=== PATIENT | female | born 1945 | race Caucasian/White ===

== ENCOUNTER 2020-07-04 17:07 | Observation (INO) | payer MEDICARE, OTHER ==
[~2020-07-04] VITALS: Ht 152.4 cm; Wt 47.2 kg
[~2020-07-04 17:07] MED LIST: AMLO5 PO; AMOX500 PO; ASPI325 PO; ATOR40TA PO; DEXT10ER; DEXT10ER PO; HYDACE5325; LEVO750 PO; LISI20 PO; MODA200 PO; POTCHL20ER PO
[2020-07-04] MEDS ORDERED: CALCIUM CIT 311 EACH PO (21:36)
[2020-07-04] MEDS ORDERED: VITAMIN D325 MC3 PO (21:37)
[2020-07-04] MEDS ORDERED: FAMO20 PO (21:37)
[2020-07-04] MEDS ORDERED: LOSA25 PO (21:37)
[2020-07-04] MEDS ORDERED: METO50 PO (21:37)
[2020-07-04] MEDS ORDERED: GABA100 PO (21:42)
[2020-07-04] MEDS ORDERED: Robaxin750 MG PO (21:43)
[2020-07-05 03:27] LABS: BASOPHILS ABSOLUTE AUTO 0.04 K/mm3 (0.00-0.23); BASOPHILS PERCENT AUTO 1 % (0-2); EOSINOPHILS ABSOLUTE AUTO 0.22 K/mm3 (0.00-0.68); EOSINOPHILS PERCENT AUTO 3 % (0-6); Hematocrit 34.3 % (33.0-51.0); Hemoglobin 10.9 g/dL (11.5-16.0); IMMATURE GRAN ABSOLUTE AUTO 0.01 K/mm3 (0.00-0.10); IMMATURE GRAN PERCENT AUTO 0 % (0-1); LYMPHOCYTES ABSOLUTE AUTO 1.67 K/mm3 (0.84-5.20); LYMPHOCYTES PERCENT AUTO 24 % (21-46); MONOCYTES ABSOLUTE AUTO 0.89 K/mm3 (0.16-1.47); MONOCYTES PERCENT AUTO 13 % (4-13); Mean Corpuscular HGB 27.6 pg (26.0-34.0); Mean Corpuscular HGB Conc 31.8 g/dL (31.5-36.5); Mean Corpuscular Volume 87 fL (80-100); Mean Platelet Volume 9.9 fL (9.1-12.4); NEUTROPHILS PERCENT AUTO 60 % (41-73); Platelet Count 190 K/mm3 (150-400); RDW Coefficient Variation 14.2 % (11.7-14.2); RDW Standard Deviation 45.4 fL (35.1-46.3); Red Blood Cell Count 3.95 M/mm3 (3.80-5.20); White Blood Cell Count 7.03 K/mm3 (4.00-11.30)
[2020-07-05 03:47] LABS: Anion Gap 4 mmol/L (6-16); Blood Urea Nitrogen 17 mg/dL (8-24); Bun/Creatinine Ratio 24.6 (12.0-20.0); CO2, Blood 30 mmol/L (21-32); Calcium, Blood 8.7 mg/dL (8.5-10.1); Chloride, Blood 108 mmol/L (98-108); Creatinine, Blood 0.69 mg/dL (0.40-1.00); Glomerular Filtration Rate >60 (60-); Glucose, Blood 104 mg/dL (70-99); Potassium, Blood 4.1 mmol/L (3.5-5.5); Sodium, Blood 142 mmol/L (136-145)
--- NOTE | 2020-07-05 19:38 | NUR ---
PT ADMITTED TO ROOM 363 FROM ED AT 1635. ABLE TO STAND AND TAKE A FEW STEPS AND TURN TO GET INTO BED WITH 1 PERSON MOD ASSIST. SETTLED IN TO BED AND ORIENTED TO ROOM. ATE SUPPER WITH NO PROBLEM. REPORTED BACK PAIN 08/03. REPORT GIVEN TO ONCOMING SHIFT.
--- NOTE | 2020-07-06 03:37 | NUR ---
SHIFT SUMMARY AT SHIFT COMMENCE WAS C/O PAIN. RECEIVED IV ANALGESIC AND HAS BEEN RESTING QUIETLY WITH NO C/O VOICED SINCE. CALL LIGHT IN REACH. SEE MAR FOR DETAILS
[2020-07-06 05:18] LABS: Hematocrit 33.3 % (33.0-51.0); Hemoglobin 10.6 g/dL (11.5-16.0); Mean Corpuscular HGB 27.4 pg (26.0-34.0); Mean Corpuscular HGB Conc 31.8 g/dL (31.5-36.5); Mean Corpuscular Volume 86 fL (80-100); Mean Platelet Volume 10.3 fL (9.1-12.4); Platelet Count 193 K/mm3 (150-400); RDW Coefficient Variation 14.4 % (11.7-14.2); RDW Standard Deviation 45.7 fL (35.1-46.3); Red Blood Cell Count 3.87 M/mm3 (3.80-5.20); White Blood Cell Count 5.49 K/mm3 (4.00-11.30)
[2020-07-06 05:54] LABS: Anion Gap 7 mmol/L (6-16); Blood Urea Nitrogen 31 mg/dL (8-24); Bun/Creatinine Ratio 30.1 (12.0-20.0); CO2, Blood 27 mmol/L (21-32); Calcium, Blood 8.4 mg/dL (8.5-10.1); Chloride, Blood 108 mmol/L (98-108); Creatinine, Blood 1.03 mg/dL (0.40-1.00); Glomerular Filtration Rate 56 (60-); Glucose, Blood 98 mg/dL (70-99); Potassium, Blood 3.6 mmol/L (3.5-5.5); Sodium, Blood 142 mmol/L (136-145); Thyroid Stimulating Hormone <0.005 uIU/mL (0.360-4.800)
[2020-07-06] MEDS ORDERED: DEXT5ER PO (06:36)
--- NOTE | 2020-07-06 17:59 | NUR ---
SHIFT SUMMARY: NO ACUTE EVENTS. PAIN WELL MANAGED WITH NORCO AND TORADOL. DENIED NAUSEA. WORKED WITH PHYSICAL AND OCCUPATIONAL THERAPY TODAY. U/S OF NECK IS COMPLETED. PLAN IS POSSIBLE D/C TOMORROW.
--- NOTE | 2020-07-07 04:53 | NUR ---
FURNACE ATTENDANT SUMMARY PT A&OX3, ABLE TO MAKE NEEDS KNOWN. PLEASANT AND COOPERATIVE TO CARE. PT MEDICATED FOR LOWER BACK PAIN PER EMAR. NO C/O CP, SOB, OR N&V. PT CALM AND RESTED IN BED T/O SHIFT. NO ACUTE CHANGES NOTED TO PT. BED AT LOWEST POSITION. CALL LIGHT WITHIN REACH. POSSIBLE D/C TODAY.
[2020-07-07] MEDS ORDERED: Neurontin 100100 MG PO (16:33)
[2020-07-07] MEDS ORDERED: HYDR1TAB94 PO (16:34)
[2020-07-07] MEDS ORDERED: LIDO700A20 TOP (16:34)
[2020-07-07] MEDS ORDERED: Methocarbamol500 MG PO (16:35)
--- NOTE | 2020-07-07 18:23 | NUR ---
PATIENT DISCHARGED TO HOME IN CAB PAID BY [employer]. IV SALINE LOCK REMOVED WITHOUT INCIDENT. PATIENT KEPT PUTTING UP ROADBLOCKS TO D/C (NO CLOTHING, NO WAY TO PAY FOR CAB, NO ONE TO HELP HER GET TO HER FRONT DOOR, NO ONE TO HELP HER TURN HER FURNACE ON AT HOME); I REMINDED PT THAT SHE LIVED ALONE PRIOR TO ADMISSION AND WAS ABLE TO DO THINGS WITH LITTLE TO NO ASSISTANCE. KIER PLEATER WAS INSTRUCTED BY [employer] LETTERING MACHINE OPERATOR TO STOP AT PT'S PHARMACY TO INFORMATION MANAGER MEDICATIONS, TO WHICH HE AGREED. PATIENT RECEIVED EDUCATION ON ALL MEDICATIONS, GIVEN HARD COPY RX FOR NORCO, PROVIDED WITH CLOTHING AND A QUAD CANE, AND A SNACK (HALF SANDWICH, CHEESE, ENSURE). OFF UNIT VIA W/C AT 1730.
== END 2020-07-07 17:27 | disposition home health service (06) ==
LOC: ER 17:07 → ERHOLD 17:08 → MEDS 07-05 16:38
PROVIDERS: Internal Medicine; ADMIT Family Medicine
DX: M54.5 Low back pain (principal); S32.10XD Unspecified fracture of sacrum, subsequent encounter for fracture with routine healing; E05.20 Thyrotoxicosis with toxic multinodular goiter without thyrotoxic crisis or storm; I69.351 Hemiplegia and hemiparesis following cerebral infarction affecting right dominant side; G89.29 Other chronic pain; M51.37 Other intervertebral disc degeneration, lumbosacral region; Z66 Do not resuscitate; I10 Essential (primary) hypertension; K21.9 Gastro-esophageal reflux disease without esophagitis; M79.2 Neuralgia and neuritis, unspecified; R32 Unspecified urinary incontinence; R15.9 Full incontinence of feces; X58.XXXD Exposure to other specified factors, subsequent encounter
CPT/HCPCS: 36415; 72100; 76536; 80048; 84436; 84443; 85025; 85027; 96374; 97110; 97116-CQ; 97162; 97166; 97530; 99284; 99284-25; A9270; G0378; J1885

== ENCOUNTER 2020-08-01 21:56 | Inpatient (IN) | payer OTHER, MEDICARE ==
[~2020-08-01] VITALS: Ht 154.9 cm; Wt 40.1 kg
[~2020-08-01 21:56] MED LIST changes: +CALCIUM CIT 311 EACH PO; +DEXT5ER PO; +FAMO20 PO; +GABA100 PO; +HYDR1TAB94 PO; +LIDO700A20 TOP; +LOSA25 PO; +METO50 PO; +Methocarbamol500 MG PO; +Neurontin 100100 MG PO; +Robaxin750 MG PO; +VITAMIN D325 MC3 PO
--- NOTE | 2020-08-02 00:21 | NUR ---
RECIEVED REPORT FROM ED NURSE JAMES AT 1221. CC
[2020-08-02 01:39] LABS: Influenza A, PCR NEGATIVE (NEGATIVE); Influenza B, PCR NEGATIVE (NEGATIVE); Resp Syncytial Virus, PCR NEGATIVE (NEGATIVE); SARS-Cov-2 (COVID-19) PCR, MMC NEGATIVE (NEGATIVE)
--- NOTE | 2020-08-02 02:25 | NUR ---
ARRIVED FROM ED AT 1240 PT ARRIVED FROM ED AT 1240 AOX4. VSS. HYPERTENSIVE AND IN PAIN 03/05. MILD DISTRESS BECAUSE OF PAIN. HYDRALZINE WAS ADMINISTERED VIA IV. PAIN MED WAS ADMINSTERED AT ED PRIOR TO TRANSFER FOR MORPHINE. COVID TEST SENT TO LAB. CAME BACK NEGATIVE. PT REFUSE TO HAVE CATHETER IN. UA UNCOLLECTED AT THIS TIME. NPO AT MIDNIGHT. TELE WAS PUT IN, [place] AT 113. DR. DONALDSON WAS THE ADMITING PHYSICIAN, CONSULTED DR. BURCIAGA PER ER NURSE JAMES. LUNGS ARE CLEAR. PT DENIES CHEST PAIN, SOB, NUMBNESS AND TINGLING. PT ADMITTED FOR R FEMORAL NECK FX DUE TO MECHANICAL FALL IN HER KITCHEN AT HOME. PT STATES SHE LIVES ALONE IN HER HOUSE, HAVE CAREGIVER COME IN DURING THE DAY, HER NAME IS BETTY. VERBAL CONSENT TO SPEAK TO HER REGARDING MEDICAL NEEDS. CALL LIGHT WITHIN REACH.
--- NOTE | 2020-08-02 02:31 | NUR ---
PT SLEEPING COMFORTABLE IN BED.
[2020-08-02 03:43] LABS: Source, Urine Catheter
--- NOTE | 2020-08-02 03:47 | NUR ---
SHIFT SUMMARY AOX4. PT ADMITTED FOR FEMORAL FX ON RIGHT DUE TO MECHANICAL FALL AT HOME. VSS. BP IMPROVED TO 131/60 FROM 176/107 AFTER 10MG HYDRALAZINE VIA IV. PT APPEARS MORE CALM IN BED. STILL C/O PAIN 03/05. PAIN MANAGED WITH FENTANYL 25MCG. NPO. DENIES NAUSEA AND VOMITING. PT REPORTS IN SEVERE PAIN WITH MOVEMENT. NS INFUSING AT 100MLS/HR ON LEFT AC. URINARY CATHETER IN PLACED. UA SAMPLE SENT TO LAB. WILL CONTINUE TO MONITOR. CALL LIGHT WITHIN REACH.
[2020-08-02 03:48] LABS: Bilirubin, Urine Neg (Neg); Blood, Urine Neg (Neg); Glucose Qualitative, Urine Neg (Neg); Ketones, Urine Neg (Neg); Leukocyte Esterase, Urine 2+ (Neg); Nitrite, Urine Pos (Neg); Protein, Urine 1+ (Neg); Specific Gravity, Urine 1.015 (1.003-1.022); Urobilinogen, Urine NORM (Normal)
[2020-08-02 03:54] LABS: Appearance, Urine Clear (Clear); Color, Urine Yellow (P-Yellow)
[2020-08-02 03:55] LABS: Bacteria Many /hpf; Red Blood Cells, Urine 0-2 /hpf (0-2); Squamous Epithelial Cells Few /hpf (Few)
[2020-08-02 04:46] LABS: BASOPHILS ABSOLUTE AUTO 0.02 K/mm3 (0.00-0.23); BASOPHILS PERCENT AUTO 0 % (0-2); EOSINOPHILS PERCENT AUTO 0 % (0-6); Hematocrit 33.4 % (33.0-51.0); Hemoglobin 10.9 g/dL (11.5-16.0); IMMATURE GRAN ABSOLUTE AUTO 0.03 K/mm3 (0.00-0.10); IMMATURE GRAN PERCENT AUTO 0 % (0-1); LYMPHOCYTES PERCENT AUTO 6 % (21-46); MONOCYTES ABSOLUTE AUTO 0.63 K/mm3 (0.16-1.47); MONOCYTES PERCENT AUTO 6 % (4-13); Mean Corpuscular HGB 27.2 pg (26.0-34.0); Mean Corpuscular HGB Conc 32.6 g/dL (31.5-36.5); Mean Corpuscular Volume 83 fL (80-100); NEUTROPHILS ABSOLUTE AUTO 9.78 K/mm3 (1.96-9.15); NEUTROPHILS PERCENT AUTO 88 % (41-73); Platelet Count 186 K/mm3 (150-400); RDW Coefficient Variation 13.2 % (11.7-14.2); RDW Standard Deviation 40.1 fL (35.1-46.3); Red Blood Cell Count 4.01 M/mm3 (3.80-5.20); White Blood Cell Count 11.16 K/mm3 (4.00-11.30)
[2020-08-02 05:04] LABS: Alanine Aminotransfer (ALT/SGP 18 U/L (12-78); Albumin, Blood 3.2 g/dL (3.4-5.0); Albumin/Globulin Ratio 0.8 (0.8-1.8); Alk Phos 140 U/L (50-136); Anion Gap 7 mmol/L (6-16); Aspartate Aminotrans (AST/SGOT 18 U/L (12-37); Bilirubin, Total 0.8 mg/dL (0.1-1.0); Blood Urea Nitrogen 26 mg/dL (8-24); Bun/Creatinine Ratio 34.8 (12.0-20.0); CO2, Blood 25 mmol/L (21-32); Calcium, Blood 9.4 mg/dL (8.5-10.1); Chloride, Blood 109 mmol/L (98-108); Creatinine, Blood 0.75 mg/dL (0.40-1.00); Globulin, Blood 3.9 g/dL (2.2-4.0); Glomerular Filtration Rate >60 (60-); Glucose, Blood 124 mg/dL (70-99); Potassium, Blood 4.3 mmol/L (3.5-5.5); Sodium, Blood 141 mmol/L (136-145); Total Protein, Blood 7.1 g/dL (6.4-8.2)
--- NOTE | 2020-08-02 09:00 | NUR ---
HEART RATE/RHYTHM THIS RN WAS NOTIFIED BY [employer] THAT PT'S RHYTHM LOOKS TO BE AFLUTTER WITH A RATE IN THE 120'S. THIS RN DISCUSSED THIS WITH DR. DICKERSON. NO NEW ORDERS AT THIS TIME. CALL LIGHT IN REACH.
[2020-08-02 16:30] LABS: Free Thyroxine 2.89 ng/dL (0.70-1.60); Thyroid Stimulating Hormone <0.005 uIU/mL (0.360-4.800); Triiodothyronine, Free 6.03 pg/mL (2.18-3.98)
--- NOTE | 2020-08-02 16:54 | NUR ---
echocardiogram complete
--- NOTE | 2020-08-02 17:31 | NUR ---
SHIFT SUMMARY PT HAS BEEN SLEEPING A LOT OF THE SHIFT. DR. SOTELO INTO SEE PT THIS AFTERNOON FOR CONSULT AND NEW ORDERS WRITTEN. PLANS FOR PT TO HAVE SURGERY TOMORROW. MEDICATED FOR PAIN PER EMAR. IVF INFUSING WITHOUT DIFFICULTY. PT HAS HAD NO ACUTE CHANGES. CALL LIGHT IN REACH. WILL CONTINUE TO MONITOR.
[2020-08-03 06:07] LABS: BASOPHILS ABSOLUTE AUTO 0.03 K/mm3 (0.00-0.23); BASOPHILS PERCENT AUTO 0 % (0-2); EOSINOPHILS ABSOLUTE AUTO 0.19 K/mm3 (0.00-0.68); EOSINOPHILS PERCENT AUTO 2 % (0-6); Hematocrit 33.6 % (33.0-51.0); Hemoglobin 10.9 g/dL (11.5-16.0); IMMATURE GRAN ABSOLUTE AUTO 0.06 K/mm3 (0.00-0.10); IMMATURE GRAN PERCENT AUTO 1 % (0-1); LYMPHOCYTES ABSOLUTE AUTO 0.87 K/mm3 (0.84-5.20); LYMPHOCYTES PERCENT AUTO 7 % (21-46); MONOCYTES ABSOLUTE AUTO 0.68 K/mm3 (0.16-1.47); MONOCYTES PERCENT AUTO 6 % (4-13); Mean Corpuscular HGB 27.5 pg (26.0-34.0); Mean Corpuscular HGB Conc 32.4 g/dL (31.5-36.5); Mean Corpuscular Volume 85 fL (80-100); NEUTROPHILS ABSOLUTE AUTO 10.21 K/mm3 (1.96-9.15); NEUTROPHILS PERCENT AUTO 85 % (41-73); Platelet Count 151 K/mm3 (150-400); RDW Coefficient Variation 13.4 % (11.7-14.2); RDW Standard Deviation 42.1 fL (35.1-46.3); Red Blood Cell Count 3.97 M/mm3 (3.80-5.20); White Blood Cell Count 12.04 K/mm3 (4.00-11.30)
[2020-08-03 06:31] LABS: Alanine Aminotransfer (ALT/SGP 16 U/L (12-78); Albumin, Blood 2.7 g/dL (3.4-5.0); Albumin/Globulin Ratio 0.7 (0.8-1.8); Alk Phos 129 U/L (50-136); Anion Gap 9 mmol/L (6-16); Aspartate Aminotrans (AST/SGOT 21 U/L (12-37); Bilirubin, Total 1.1 mg/dL (0.1-1.0); Blood Urea Nitrogen 21 mg/dL (8-24); Bun/Creatinine Ratio 27.7 (12.0-20.0); CO2, Blood 21 mmol/L (21-32); Chloride, Blood 113 mmol/L (98-108); Creatinine, Blood 0.76 mg/dL (0.40-1.00); Globulin, Blood 4.1 g/dL (2.2-4.0); Glomerular Filtration Rate >60 (60-); Glucose, Blood 83 mg/dL (70-99); Potassium, Blood 3.9 mmol/L (3.5-5.5); Sodium, Blood 143 mmol/L (136-145); Total Protein, Blood 6.8 g/dL (6.4-8.2)
--- NOTE | 2020-08-03 11:20 | NUR ---
PT TO DAY SURGERY VIA HOSPITAL BED
--- NOTE | 2020-08-03 17:24 | NUR ---
ASSUMED CARE OF PT POST OP, ARRIVED FROM PACU VIA GURNEY, DROWSY BUT AWAKENS EASILY, DENIES ANY PAIN OR NAUSEA, VSS, DSG C/D/I, REPORT GIVEN TO KEVIN RAMIREZ.
--- NOTE | 2020-08-03 18:52 | NUR ---
SHIFT SUMMARY PT S/P FOR R HIP FX. RECEIVED PATIENT FROM ALIDA OLIVIA FROM AT 1600. PT HAS BEEN RESTING FOR THE MAJORITY OF THE TIME I HAD HER. UTI PRESENT. MAHONEY IN PLACE PATENT AND DRAINING. VSS.
--- NOTE | 2020-08-04 02:34 | NUR ---
SHIFT SUMMARY POD1 R FEMUR FX REPAIR, A/O X2/3 (REORIENTED TO PLACE AND SITUATION), TOLERATING PO THOUGH SHE DEVELOPED A MILD COUGH WHEN DRINKING FLUIDS BUT IS DOING WELL NOW, REPORTS PAIN TOLERABLE W/O PAIN MEDICATIONS DURING THIS SHIFT, MAHONEY IN PLACE FROM MAJOR SURGERY AND WILL DC PER ORDER, NO WEIGHT BEARING STATUS ORDERED SO PT IS ON BEDREST TILL FURTHER INSTRUCTIONS. NO ACUTE EVENTS THIS SHIFT, PT GIVEN SUCTION INCASE SHE COUGHS UP ANY DISCHARGE. CALL LIGHT IN REACH, WILL CONTINUE TO MONITOR AND REPORT TO ONCOMING DAY RN.
--- NOTE | 2020-08-04 09:28 | NUR ---
08/04/20 0928 Jess Cotto VERIFICATIONS: EDIT CHART.
[2020-08-04 10:06] LABS: Hematocrit 25.3 % (33.0-51.0); Hemoglobin 8.6 g/dL (11.5-16.0); Mean Corpuscular HGB 28.5 pg (26.0-34.0); Mean Corpuscular Volume 84 fL (80-100); Mean Platelet Volume 10.4 fL (9.1-12.4); Platelet Count 147 K/mm3 (150-400); RDW Coefficient Variation 13.6 % (11.7-14.2); RDW Standard Deviation 41.9 fL (35.1-46.3); Red Blood Cell Count 3.02 M/mm3 (3.80-5.20); White Blood Cell Count 10.42 K/mm3 (4.00-11.30)
[2020-08-04 10:30] LABS: Anion Gap 7 mmol/L (6-16); Blood Urea Nitrogen 49 mg/dL (8-24); CO2, Blood 24 mmol/L (21-32); Calcium, Blood 8.6 mg/dL (8.5-10.1); Chloride, Blood 110 mmol/L (98-108); Creatinine, Blood 0.88 mg/dL (0.40-1.00); Glomerular Filtration Rate >60 (60-); Glucose, Blood 192 mg/dL (70-99); Potassium, Blood 4.3 mmol/L (3.5-5.5); Sodium, Blood 141 mmol/L (136-145)
--- NOTE | 2020-08-04 15:04 | NUR ---
IS GIVEN WITH INSTRUCTIONS, DEMONSTRATED PROPER USE.
--- NOTE | 2020-08-04 17:03 | NUR ---
SUMMARY REPORTS PAIN HAS BEEN TOLERABLE, PT HAS ONLY TAKEN TYLENOL FOR PAIN, DENIES ANY NEED FOR NARCOTICS, AQUACEL DSG C/D/I, OOB W/ PT/OT TOLERATED FAIRLY WELL, W/ 2 PERSON MAX ASSIST, TOLERATING DIET WELL, NO ACUTE CHANGES THIS SHIFT.
--- NOTE | 2020-08-05 02:55 | NUR ---
BLOOD PRESSURE PT APPEARS TO BE ASYMPTOMATIC FOR HYPOTENSION, PT HAS HAD LOW PO INTAKE TODAY, FLUIDS RESTARTED, WILL CONTINUE TO MONITOR AND RECHECK BP.
--- NOTE | 2020-08-05 04:15 | NUR ---
SHIFT SUMMARY POD2 INTRAMEDULLARY NAILING, ALERT W/ INTERMITTENT CONFUSION, VSS OTHER THAN SLIGHTLY LOW BP, FLUIDS RESTARTED AND ENCOURAGED PO FLUID INTAKE, PT VOICED DISLIKE OF CURRENTLY MEDICAL CARE, STATES SHE DOESN'T WANT ANYTHING THAT SHE DOESN'T NORMALLY TAKE. 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 PT IRRITABLE BUT COOPERATIVE W/ NURSING CARE. CALL LIGHT IN REACH, WILL CONTINUE TO MONITOR AND REPORT TO ONCOMING DAY RN.
--- NOTE | 2020-08-05 09:40 | NUR ---
pt oob with ot to recliner pt reported being dizzy upon standing dr solorio by to see pt earlier req a muscle relaxer and pain oral pain med
--- NOTE | 2020-08-05 11:11 | NUR ---
PT BACK IN BED
--- NOTE | 2020-08-05 15:53 | NUR ---
ASSUMED CARE OF PATIENT. PT RESTING IN BED AND TALKING ON TELEPHONE. PT STATES HAS NO NEEDS AT THIS TIME
--- NOTE | 2020-08-05 17:37 | NUR ---
SUMMARY PT REPORTS ADEQUATE PAIN CONTROL AT THIS TIME. PT TELLS ME SHE PLANS TO DISCHARGE TO SNF PRIOR TO RETURNING HOME, CARE MANAGEMENT FACILITATING DISCHARGE PLAN. PT EATINNG DINNER WITH CALL LIGHT IN REACH
--- NOTE | 2020-08-06 05:23 | NUR ---
SHIFT SUMMARY PT HAS BEEN ALERT, ORIENTED X3; FORGETFUL/CONFUSED AT TIMES. BED ALARM ON. PAIN MANAGED WITH PO PAIN MED PER ORDERS. PT TAKING PILLS WITH WATER. MAHONEY IN PLACE, PATENT, STAT LOCK ON. PT HAD BM THIS SHIFT. SHE IS INCONTINENT AND HAS ATTENS ON. REPOSITIONING SELF IN BED AND ASSISTED PRN. PT DID AWAKEN WITH ANXIETY AND PAIN DURING THE NIGHT AND WAS MEDICATED WITH FLEXERIL AND PAIN MEDICATION WITH GOOD EFFECT. PT RESTING AT THIS TIME, CALL LIGHT IN REACH.
--- NOTE | 2020-08-06 08:29 | NUR ---
DR DICKERSON HERE RECENTLY TO SEE PT. REPORTS TO D/C DENZEL TODAY.
--- NOTE | 2020-08-06 11:20 | NUR ---
FEMALE THERAPY IN ROOM. DENZEL ZARATE'Rosalia PER DR DICKERSON. PT TOLERATED WELL.
--- NOTE | 2020-08-06 12:02 | NUR ---
PT UP TO CHAIR WITH MULT ASSIST INCLUDING THERAPY. TAB ALARM IN PLACE. PT PAINFULL AND APPEARS ANXIOUS AT THIS TIME. PT HAD BM, CLEANED UP BY FEMALE OUT OF SCHOOL HOURS CARE WORKER. MEPILEX IN PLACE.
--- NOTE | 2020-08-06 12:11 | NUR ---
PT MED PRN FOR PAIN.
--- NOTE | 2020-08-06 13:08 | NUR ---
PT UP IN CHAIR WATCHING TV. APPEARS TO BE MUCH MORE RELAXED AT THIS TIME.
--- NOTE | 2020-08-06 14:24 | NUR ---
PT BACK TO BED WITH MULT ASSIST PER PT REQ. PT ASSISTED WITH ADL'S PRN. PT GIVEN SIPPY CUP PT REPORTED OTHER CUP TO HEAVY. PT REPORTS THAT WILL WORK BETTER, ABLE TO SALES SERVICE EXECUTIVE AND DOWN WELL. PT BED BEEN ZERO'D AND BED ALARM IN PLACE. PT HOB ELEVATED. BLE TEDS IN PLACE. PT BLE ELEVATED ON PILLOW. PT CONTINUE TO REFUSE PAS, BEEN EDUCATED ON REASON FOR USE.
--- NOTE | 2020-08-06 16:55 | NUR ---
SHIFT SUMMARY PT EATING AND DRINKING. PT BEEN UP TO CHAIR WITH THERAPY ASSIST. PT BACK TO BED EARLIER TODAY PER PT REQ. PT MAHONEY OUT EARLIER TODAY. PT HAD BM TODAY, MEPILEX WAS PLACED TO BOTTOM BY FEMALE VOICE OVER ARTIST. PT USES CALL LIGHT AT TIMES. PT BED ALARM IN PLACE AT THIS TIME. PT HAS TEDS IN PLACE BUT REFUSES SCD'S. PT PLACED ON 2L02NC THIS AFTERNOON WHEN SLEEPING SHE WAS BELOW 90 ON RA AT THAT TIME, UP TO 94% ON 2L02NC. PT BEEN ASSISTED WITH ADL'S PRN. PT BEEN REPOSITIONED AT TIMES, OTHER TIMES PT REFUSED TO BE REPOSITIONED. PT HAS HAD BLE ELEVATED ON PILLOW TO FLOAT HEELS, REFUSES HEEL PROTECTORS AND HEEL PROTECTIVE DRESSINGS. PT SPEECH CLEAR. PT RIGHT ARM BEEN ELEVATED/SUPPORTED BY PILLOW AT TIMES, OTHER TIMES PT STATES SHE DOES NOT WANT IT.
--- NOTE | 2020-08-07 04:22 | NUR ---
SHIFT SUMMARY PT HAS BEEN ALERT, ORIENTED X3-4; FORGETFUL AT TIMES. BED ALARM ON. PT HAS BEEN DECLINING MOST REPOSITIONING OVERNIGHT. ATTENS IN PLACE AND CHANGED PRN. PT HAS BEEN INCONTINENT OVERNIGHT. TAKING ULTRAM AND FLEXERIL PRN FOR PAIN. PT REPORTS SHE IS COMFORTABLE AT THIS TIME. USING 2L O2 NC OVERNIGHT, HOB ELEVATED. PT RESTING IN BED AT THIS TIME, CALL LIGHT IN REACH.
[2020-08-07 05:59] LABS: BASOPHILS ABSOLUTE AUTO 0.02 K/mm3 (0.00-0.23); BASOPHILS PERCENT AUTO 0 % (0-2); EOSINOPHILS ABSOLUTE AUTO 0.49 K/mm3 (0.00-0.68); EOSINOPHILS PERCENT AUTO 4 % (0-6); Hematocrit 22.9 % (33.0-51.0); Hemoglobin 7.4 g/dL (11.5-16.0); IMMATURE GRAN ABSOLUTE AUTO 0.05 K/mm3 (0.00-0.10); IMMATURE GRAN PERCENT AUTO 0 % (0-1); LYMPHOCYTES ABSOLUTE AUTO 1.51 K/mm3 (0.84-5.20); LYMPHOCYTES PERCENT AUTO 12 % (21-46); MONOCYTES ABSOLUTE AUTO 0.98 K/mm3 (0.16-1.47); MONOCYTES PERCENT AUTO 8 % (4-13); Mean Corpuscular HGB 27.9 pg (26.0-34.0); Mean Corpuscular HGB Conc 32.3 g/dL (31.5-36.5); Mean Corpuscular Volume 86 fL (80-100); Mean Platelet Volume 10.3 fL (9.1-12.4); NEUTROPHILS PERCENT AUTO 76 % (41-73); Platelet Count 192 K/mm3 (150-400); RDW Coefficient Variation 14.1 % (11.7-14.2); RDW Standard Deviation 43.9 fL (35.1-46.3); Red Blood Cell Count 2.65 M/mm3 (3.80-5.20); White Blood Cell Count 12.85 K/mm3 (4.00-11.30)
[2020-08-07 06:23] LABS: Alanine Aminotransfer (ALT/SGP 16 U/L (12-78); Albumin/Globulin Ratio 0.5 (0.8-1.8); Alk Phos 103 U/L (50-136); Anion Gap 2 mmol/L (6-16); Aspartate Aminotrans (AST/SGOT 12 U/L (12-37); Bilirubin, Total 0.4 mg/dL (0.1-1.0); Blood Urea Nitrogen 21 mg/dL (8-24); CO2, Blood 30 mmol/L (21-32); Calcium, Blood 8.7 mg/dL (8.5-10.1); Chloride, Blood 107 mmol/L (98-108); Creatinine, Blood 0.66 mg/dL (0.40-1.00); Globulin, Blood 3.8 g/dL (2.2-4.0); Glomerular Filtration Rate >60 (60-); Glucose, Blood 97 mg/dL (70-99); Potassium, Blood 4.5 mmol/L (3.5-5.5); Sodium, Blood 139 mmol/L (136-145); Total Protein, Blood 5.8 g/dL (6.4-8.2)
--- NOTE | 2020-08-07 09:15 | NUR ---
DISCUSSED PT'S STATUS AND ABX ORDER WITH DR FRAIRE, REPORTS TO GIVE ABX IS ORDERED THIS AM.
--- NOTE | 2020-08-07 17:20 | NUR ---
SHIFT SUMMARY PT EATING AND DRINKING, VOIDING. PT BEEN ASSISTED WITH ADL'S PRN. PT BEEN MED ORDERED AND PRN. PT BEEN RESTING QUIETLY OFF AND ON. PT BED ALARM IN PLACE. PT BEEN EATING WITH HOB ELEVATED. DR FRAIRE BEEN TO SEE PT TODAY.
--- NOTE | 2020-08-08 03:34 | NUR ---
SHIFT SUMMARY PT HAS BEEN A/O X3, FORGETFUL AT TIMES. PAIN MANAGED WITH ULTRAM AND FLEXERIL PER ORDERS. ATTENS IN PLACE AND CHANGED PRN. PT REPOSITIONS SELF SOMEWHAT IN BED AND HAS BEEN ASSISTED Q2/PRN. PT HAS HAD SOME DIFFICULTY SWALLOWING, COUGHING AFTER DRINKING FLUIDS. WILL DISCUSS WITH DAY SHIFT. TAKING MEDS WITH PUDDING. PT USING 1-2L O2 NC OVERNIGHT TO MAINTAIN O2 ABOVE 92%. RESTING AT THIS TIME, CALL LIGHT IN REACH.
[2020-08-08 05:19] LABS: Hematocrit 22.8 % (33.0-51.0); Hemoglobin 7.4 g/dL (11.5-16.0); Mean Corpuscular HGB 27.7 pg (26.0-34.0); Mean Corpuscular HGB Conc 32.5 g/dL (31.5-36.5); Mean Corpuscular Volume 85 fL (80-100); Mean Platelet Volume 9.8 fL (9.1-12.4); Platelet Count 265 K/mm3 (150-400); RDW Coefficient Variation 13.5 % (11.7-14.2); Red Blood Cell Count 2.67 M/mm3 (3.80-5.20); White Blood Cell Count 11.49 K/mm3 (4.00-11.30)
[2020-08-08 05:41] LABS: Albumin, Blood 1.9 g/dL (3.4-5.0); Anion Gap 4 mmol/L (6-16); Blood Urea Nitrogen 19 mg/dL (8-24); CO2, Blood 29 mmol/L (21-32); Calcium, Blood 8.8 mg/dL (8.5-10.1); Chloride, Blood 106 mmol/L (98-108); Creatinine, Blood 0.63 mg/dL (0.40-1.00); Glomerular Filtration Rate >60 (60-); Glucose, Blood 96 mg/dL (70-99); Phosphorus, Blood 3.9 mg/dL (2.5-4.9); Potassium, Blood 4.5 mmol/L (3.5-5.5); Sodium, Blood 139 mmol/L (136-145)
--- NOTE | 2020-08-08 18:41 | NUR ---
SUMMARY: PT IS POD10 R FEMOR ORIF. NO ACUTE CHANGE TODAY. VSS, A/O, FORGETFUL AT TIMES, BED ALARM ON. SURGICAL SITE WNL, PT WORKED WITH PT/OT, SEE NOTES. SERVERAL INCONTINENT VOIDS, CHANGED PRN, PT ROLLS WELL. PLAN IS SNF PLACEMENT, AWAITING REHAB BED. WILL REPORT TO LATANYA BROWN
--- NOTE | 2020-08-09 06:30 | NUR ---
SHIFT SUMMARY POD6 R ORIF, A/O BUT FORGETFUL, VSS, TOLERATING PO W/ ENCOURAGEMENT TO GO SLOW W/ SMALL BITES/SIPS, TAKES PILLS WELL, MINIMAL REPORTS OF PAIN WHICH IS WELL CONTROLLED PER EMAR, MULTIPLE INCONINENT VOIDS W/ NO BM THIS SHIFT, DOES WELL W/ REPOSITIONING AND NO C/O PAIN WHEN DOING SO. NO ACUTE EVENTS THIS SHIFT. CALL LIGHT IN REACH, WILL CONTINUE TO MONITOR AND REPORT TO ONCOMING DAY RN.
[2020-08-09 08:59] LABS: Hematocrit 25.6 % (33.0-51.0); Hemoglobin 8.4 g/dL (11.5-16.0)
--- NOTE | 2020-08-09 19:09 | NUR ---
SUMMARY: PT IS POD6 ORIF OF R FEMUR. NO ACUTE CHANGE TODAY. VSS, A/O, FORGETFUL AT TIMES. BED ALARM ON. PT TURNED Q2 PRN, HAD SEVERAL INCONT. VOIDS. SURGICAL SITE WNL. ULTRAM AND FLEXERIL SEEM TO MANAGE PAIN WELL. CONTINUING TO AWAIT PLACEMENT AT SNF, SEE REAMING MACHINE OPERATOR FOR PLASTIC NOTES. REPORT GIVEN TO LATANYA ROPER RN.
--- NOTE | 2020-08-10 03:02 | NUR ---
SHIFT SUMMARY POD7 ORIF. NO ACUTE CHANGES T/O SHIFT. PT SLEPT ALL NIGHT. PAIN IS MODERATE 3-5. PAIN MANAGED WITH REPOSITIONING, ULTRAM AND TYLENOL. MEDS ARE TAKEN WITH APPLESAUCE/PUDDING TO HELP IN SWALLOWING. SHE ALERT AND ORIENTED, INTERMINETLY FORGETFUL. BED ALARM ON. PT DENIES CP/SOB/N/V. SHE IS INCONTINENT, VOIDS ADEQUATELY. WILL CONT TO AWAIT FOR PLACEMENT. WILL PROVIDE REPORT TO MORNING NURSE.
[2020-08-10 05:02] LABS: Percent Saturation 16.5 % (15.0-50.0)
--- NOTE | 2020-08-10 08:06 | NUR ---
SORE THROAT Patient c/o sore throat. Received T.O. from Dr. Clifton for Cepachol Q2H PRN for sore throat. EMAR updated.
--- NOTE | 2020-08-10 18:25 | NUR ---
Shift Summary A/Ox4, forgetful at times. Worked with PT/OT this shift, tolerated both well. 2P max stand pivot transfer with gait belt. Up in chair for lunch and back to bed sometime after noon. C/O sorethroat this morning, Cepachol ordered. Ice and cepachol seems to minimize soreness. Medicated for pain to R hip x 2 with good relief, pain exacerbated with movement per patient statement. Refused stool softner and senna, patient did have at least 2 bowel movements today. Both were soft. Mepilex to coccyx changed. Updated caregiver Adriana over the phone and in person. VSS, afebrile. Bed in lowest position, bed alarm on, call light near by.
--- NOTE | 2020-08-11 03:42 | NUR ---
SHIFT SUMMARY NO ACUTE CHANGES T/O THE SHIFT. SHE SLEPT WELL OVERNIGHT. PT REPORTED MODERATE PAIN ON HER RIGHT SIDE, REPOSITIONED AND ULTRAM FOR PAIN MANAGEMENT. NO DIFFICULTY IN SWALLOWING PILLS THIS MORNING. PT HAS NOT BEEN COMPLAINING OF S/T. PT ALSO REFUSED COLACE AND SENOKOT BUT SHE HAD BM FROM THE DAY SHIFT (YESTERDAY). VSS. MEPLEX ON COCCYX. VSS. AFEBRILE. CALL LIGHT WITHIN REACH. WILL PROVIDE REPORT FOR DAY NURSE.
--- NOTE | 2020-08-11 18:11 | NUR ---
SHIFT SUMMARY PT EATING AND DRINKING, VOIDING. PT BEEN ASSISTED WITH ADL'S PRN. PT FAMILY/FRIEND IN TO SEE PT. PT BEEN MED PRN FOR PAIN. PT WORKED WITH THERAPY TODAY, WAS UP IN CHAIR. PT BEEN MED PRN FOR PAIN. PT ALARM IN PLACE. CALL LIGHT IN REACH, USING APPR.
[2020-08-12 04:40] LABS: Hematocrit 25.3 % (33.0-51.0); Hemoglobin 8.1 g/dL (11.5-16.0)
--- NOTE | 2020-08-12 05:23 | NUR ---
SHIFT SUMMARY: PT POD#8 FOR A GAMMA NAILING TO RT HIP. AQUACEL DRESSING C/D/I. PT APPEARED TO BE PARANOID IN BEGINNING OF SHIFT AND REFUSING ALL MEDS. OTHERWISE, PT HAS BEEN CALM AND COOPERATIVE WITH CARE. INCONTINENT OF ATTENDS. 2 MODERATE ASSIST FOR REPOSITIONING. AWAITING POSSIBLE SNF PLACEMENT.
--- NOTE | 2020-08-12 10:24 | NUR ---
PT RECENTLY UP TO CHAIR AFTER WORKING WITH THERAPY. THERAPY REPORTED PLACING TAB ALARM.
--- NOTE | 2020-08-12 11:15 | NUR ---
DISCUSSED PT'S STATUS WITH DR JEAN BAPTISTE SHE REPORTS SEEING PT THIS AM.
--- NOTE | 2020-08-12 15:45 | NUR ---
SHIFT SUMMARY PT EATING AND DRINKING, VOIDING. ATTENDS CHANGED BY FEMALE CRAFT WORKER. PT BEEN UP TO CHAIR TODAY. PT NOW IN BED WITH BED ALARM IN PLACE. PT BEEN PLEASANT AND COOPERATIVE. PT USING CALL LIGHT APPR. PT BEEN REPOSITIONED PRN. PT BEEN MED PRN FOR PAIN. PT BEEN RESTING QUIETLY TAKING NAPS, WATCHING TV, OR READING HER BOOK WHEN NOT DISTURBED.
--- NOTE | 2020-08-12 16:16 | NUR ---
OTHER RN S.S. GIVEN REPORT AND IS ASSUMING CARE OF PT.
--- NOTE | 2020-08-12 16:19 | NUR ---
ASSUMED CARE OF PATIENT. PT IN BED READING A PAPERBACK BOOK. PT DENIES ANY NEEDS AT THIS TIME. CALL LIGHT IN REACH
--- NOTE | 2020-08-12 17:35 | NUR ---
PT EATING DINNER. PT REPORTS RIGHT LEG PAIN IS 3/10 WHICH IS ACCEPTABLE LEVEL FOR HER. PT DENIES ANY NEEDS AT THIS TIME, CALL LIGHT IN REACH
--- NOTE | 2020-08-13 05:40 | NUR ---
SHIFT SUMMARY: PT MORE PAINFUL IN BEGINNING OF SHIFT. MEDICATED WITH ULTRAM, TYLENOL AND FLEXERIL PER EMAR. PT ALSO GIVEN AN ICE PACK FOR COMFORT. PT NOT PARANOID THIS SHIFT AND HAS BEEN COOPERATIVE WITH CARE. CONTINUES TO REFUSE STOOL SOFTENERS. VOIDING IN ATTENDS AND USING CALL LIGHT FOR ASSISTANCE WITH CHANGING ATTENDS. PT TALKATIVE WITH STAFF. APPEARS TO BE RESTING THIS MORNING. AWAITING PLACEMENT.
--- NOTE | 2020-08-13 19:28 | NUR ---
SHIFT SUMMARY PT IS POD#9 FROM R HIP NAILING WITH DR. BURCIAGA. PT IS AWAITING PLACEMENT, RACE STARTER INVOLVED. PAIN MANAGED WITH TYLENOL, TORADOL AND FLEXERIL. VSS. REPORT GIVEN TO LATANYA BROWN.
--- NOTE | 2020-08-14 03:14 | NUR ---
SHIFT SUMMARY POD 10 R HIP FX REPAIR, A/O X4 BUT FORGETFUL, REORIENTS EASILY, PLEASANT AND COOPERATIVE W/ ALL NURSING CARE, VSS, TOLERATING PO, MAX ASSIST W/ AMBULATION DUE TO R SIDE DEFICITS FROM PRIOR CVA, VOIDING INCONTINENTLY, PAIN MANAGED PER EMAR, NO ACUTE EVENTS THIS SHIFT. CALL LIGHT IN REACH, WILL CONTINUE TO MONITOR AND REPORT TO ONCOMING DAY RN.
--- NOTE | 2020-08-14 10:00 | NUR ---
DR. JEAN BAPTISTE NOTIFIED THAT PT HAS BEEN REFUSING HER THYROID MEDICATION. DR. JEAN BAPTISTE REPORTED SHE WOULD CHECK LABS TO DETERMINE IF THYROID MEDICATION WAS NEEDED.
--- NOTE | 2020-08-14 17:53 | NUR ---
SHIFT SUMMARY PT IS POD#10 FROM R HIP REPAIR. PT WAS UP TO THE CHAIR X1 FOR LUNCH. SHE SAT UP FOR APPROXIMATELY AN HOUR AND BECAME TIRED. PT IS A 2 PERSON ASSIST FOR TRANSFERS. PT IS AWAITING PLACEMENT AT THIS TIME. VSS. WILL CONTINUE TO MONITOR.
[2020-08-14 18:08] LABS: Free Thyroxine 2.22 ng/dL (0.70-1.60)
[2020-08-14 18:10] LABS: Triiodothyronine, Free 5.67 pg/mL (2.18-3.98)
--- NOTE | 2020-08-15 06:32 | NUR ---
SHIFT SUMMARY POD 11 R HIP FX REPAIR, A/O BUT FORGETFUL AT TIMES, VSS, TOLERATING PO, PAIN WELL CONTROLLED PER EMAR, VOIDING INCONTINENTLY, SMALL BM THIS SHIFT, NO ACUTE EVENTS THIS SHIFT. CALL LIGHT IN REACH, WILL CONTINUE TO MONITOR AND REPORT TO ONCOMING DAY RN.
--- NOTE | 2020-08-15 07:42 | NUR ---
PT RECENTLY COMPLAINED OF HER LEFT EAR BOTHERING HER. NOTHING SEEN INSIDE HER EAR THAT I CAN SEE, NOTHING NOTED TO BE DRAINING. PT GIVEN WARM BLANKET TO SEE IF THAT WOULD PROVIDE COMFORT. DR JEAN BAPTISTE NOTIFIED.
--- NOTE | 2020-08-15 12:56 | NUR ---
PT RECTUM DID NOT APPEAR TO BE PROLAPSED AT THIS TIME. PT HAD BM AND WAS CLEANED UP WITH ASSIST, NEW MEPILEX TO BOTTOM. PT HAD MEPILEX IN PLACE ALREADY. PT ASSISTED WITH ADL'S PRN. PT ENC OOB TO CHAIR, PT DECLINED. CALL LIGHT IN REACH. BED ALARM IN PLACE.
--- NOTE | 2020-08-15 17:03 | NUR ---
SHIFT SUMMARY PT EATING AND DRINKING, VOIDING, HAVING BM. PT RECTUM PROLAPSE NO LONGER PROTRUDING, DOES NOT APPEAR TO BE PROLAPSED ANYLONGER. PT BEEN REPOSITIONED MULT TIMES. PT HAS HAD MEPILEX REPLACED MULT TIMES WHEN IT BECAME DIRTY/SOILED. PT WORKED WITH THERAPY TODAY. PT REPORTS DOING EXCERCISES IN BED. PT BEEN ASSISTED WITH ADL'S PRN. CALL LIGHT IN REACH, USING APPR. BED ALARM IN PLACE.
--- NOTE | 2020-08-16 04:37 | NUR ---
CHIEF DEPUTY CLERK/BAILIFF SUMMARY A/O 2-3, REFUSES REPOSITIONING AT TIMES. MEDICATED FOR PAIN X1, DENIES SOB. INCONT, ATTENDS IN PLACE. VSS, NO ACUTE CHANGES AT THIS TIME. CURRENTLY AWAITING PLACEMENT FOR SAFE D/C. BED IN LOWEST POSITION WITH CALL LIGHT IN REACH. WILL CONTINUE TO MONITOR AND REPORT TO ONCOMING RN.
[2020-08-16 05:18] LABS: BASOPHILS ABSOLUTE AUTO 0.03 K/mm3 (0.00-0.23); BASOPHILS PERCENT AUTO 0 % (0-2); EOSINOPHILS ABSOLUTE AUTO 0.12 K/mm3 (0.00-0.68); EOSINOPHILS PERCENT AUTO 1 % (0-6); Hemoglobin 8.7 g/dL (11.5-16.0); IMMATURE GRAN ABSOLUTE AUTO 0.02 K/mm3 (0.00-0.10); IMMATURE GRAN PERCENT AUTO 0 % (0-1); LYMPHOCYTES ABSOLUTE AUTO 1.42 K/mm3 (0.84-5.20); LYMPHOCYTES PERCENT AUTO 16 % (21-46); MONOCYTES ABSOLUTE AUTO 0.69 K/mm3 (0.16-1.47); MONOCYTES PERCENT AUTO 8 % (4-13); Mean Corpuscular HGB Conc 32.2 g/dL (31.5-36.5); Mean Corpuscular Volume 84 fL (80-100); Mean Platelet Volume 8.4 fL (9.1-12.4); NEUTROPHILS ABSOLUTE AUTO 6.58 K/mm3 (1.96-9.15); NEUTROPHILS PERCENT AUTO 74 % (41-73); Platelet Count 593 K/mm3 (150-400); RDW Standard Deviation 43.5 fL (35.1-46.3); Red Blood Cell Count 3.22 M/mm3 (3.80-5.20); White Blood Cell Count 8.86 K/mm3 (4.00-11.30)
[2020-08-16 05:37] LABS: Albumin, Blood 2.5 g/dL (3.4-5.0); Anion Gap 5 mmol/L (6-16); Blood Urea Nitrogen 15 mg/dL (8-24); Bun/Creatinine Ratio 23.3 (12.0-20.0); CO2, Blood 28 mmol/L (21-32); Calcium, Blood 9.2 mg/dL (8.5-10.1); Chloride, Blood 106 mmol/L (98-108); Creatinine, Blood 0.64 mg/dL (0.40-1.00); Glomerular Filtration Rate >60 (60-); Glucose, Blood 104 mg/dL (70-99); Magnesium, Blood 1.8 mg/dL (1.6-2.4); Potassium, Blood 3.8 mmol/L (3.5-5.5); Sodium, Blood 139 mmol/L (136-145)
--- NOTE | 2020-08-16 18:00 | NUR ---
SHIFT SUMMARY PT EATING AND DRINKING, VOIDING. PT HAD BM EARLIER TODAY. PT BEEN ASSISTED WITH ADL'S PRN. PT WAS UP IN CHAIR TODAY, WORKED WITH THERAPY AND WAS ASSISTED WITH "EXCERCISES" WITH EQUIP WITH ASSIST EARLIER TODAY. PT TOLERATED WELL. PT BEEN PLEASANT AND COOPERATIVE. PT USING CALL LIGHT APPR. PT BEEN MED PRN FOR PAIN AND WITH MUSCLE RELAXER PER HER REQ.
--- NOTE | 2020-08-17 04:32 | NUR ---
SHIFT SUMMARY POD 13 R HIP FX REPAIR, ALERT BUT OCCASIONALLY FORGETFUL, VSS, TOLERATING PO, MAX ASSIST FOR XFERS BED TO CHAIR AND BACK, SIGNIFICANT R SIDE WEAKNESS DUE TO PRIOR CVA, VOIDING IN ATTENDS, BM RECENTLY. TEMP ELEVATED AT START OF SHIFT, PT GIVEN COOL WASHCLOTH/PERSONAL FAN/TYLENOL, TEMP RESOLVED, NO OTHER ACUTE EVENTS THIS SHIFT. CALL LIGHT IN REACH, WILL CONTINUE TO MONITOR AND REPORT TO ONCOMING DAY RN.
--- NOTE | 2020-08-17 15:51 | NUR ---
SHIFT SUMMARY PT REMAINS IN THE HOSPITAL WAITING MEDICAID APPROVAL. SO PT CAN DISCHARGE TO SNF. PAIN MANAGED WITH TYLENOL, TRAMADOL AND FLEXERIL. PT IS USING THE ROME LIFT WITH 1-2 ASSIST. SHE HAS BEEN INCONTINENT OF URINE. VSS. WILL MONITOR UNTIL REPORT TO ONCOMING RN.
--- NOTE | 2020-08-17 18:49 | NUR ---
TAKE OVER CARE AROUND 1600, PT RESTING IN CHAIR VISITING W/ FAMILY. DENIES NEEDS. ATE DINNER AROUND 1730. BACK TO BED AT 1840, CONTINUES TO DENY PAIN.
--- NOTE | 2020-08-18 01:28 | NUR ---
PT TRANSFERRED TO UNIT FROM SURGICAL FLOOR AT 0125, RECEIVED REPORT FROM KEVIN ANTHONY. PT A&OX4. ABLE TO MAKE NEEDS KNOWN. R HIP BETTIE C/D/I. ATTENDS IN PLACE. PT HAS NO IV ACCESS UPON TRANSFER TO UNIT, NO IV ACCESS NOTED FROM REPORT. BED AT LOWEST POSITION W/ ALARM ON, CALL LIGHT WITHIN REACH.
--- NOTE | 2020-08-18 01:31 | NUR ---
TRANSFER REPORT GIVEN TO MAKENZIE RN, PT TRANSPORTED TO MEDICAL FLOOR ROOM 339, DISCUSSED REASON FOR TRANSPORT W/ PATIENT, NO EVENTS DURING TRANSPORT, PT STABLE AFTER HANDOFF.
--- NOTE | 2020-08-18 15:34 | NUR ---
CALLED DR JEAN BAPTISTE- PT HAD A SPEECH EVAL AND IS A STRICT NPO PER ST. SPOKE TO ABOUT WHAT TO DO FOR PT PO MEDICATIONS, SHE IS AWARE AND WILL REVIEW. PALLIATIVE CARE HAS BEEN CONSULTED AND CAME TO SEE THE PT.
--- NOTE | 2020-08-18 16:40 | NUR ---
Contacted by speech therpaist to review pt needs. Pt is starting to deline in her weight, swallow and ADL's. Review of chart and review of tp with therapist and nursing. Pt alert vry anxious. Her sclera is visible above her iris and some bulging noted. Speech is somewhat forces with we cough. Some head swinging noted and neck stiffening. Pt states she has a headache. She denies dyspnea. She begs for oral care but coughs with stimulus and swallow. She denies shorness of breath or air hunger no nauses or cramping. She has some aching in her joints. She is very anxious. Pt states she lives with people who care for her she has been to other hospitals she was somewhat evasive to further questiosn. Pt does not want to come to hospital anymore and expressing great stress at her decline. Carefully asked if she had a POA or someone to make decisions for her she stated my friends help me. Advised pt I will look at her options for medical care. Review of pt chart she may qualify for hospice under non disease specific. Pt has history of CVA , pt chachetic, aspirating and has history of CVA. KPS score is 30%. Updated [facility] will review and ask Doctor Neeta to review. followed up pt with supportive visit.
--- NOTE | 2020-08-18 17:11 | NUR ---
CALLED DR JEAN BAPTISTE- PT AT FIRST WAS DECLINING IV PLACEMENT. EXPLAINED THE SITUATION TO HER ABOUT NOT BEING ABLE TO TAKE IN PO FLUIDS OR MEDICATIONS AND THEN THE PT AGREED. DR JOHNSON. PT PLACED ON Q6 CARDIZEM IV RECIEVED A VERBAL ORDER FOR TELE PER UNIT PROTOCOL, ALSO RECIEVED AN ORDER FOR CLINIMIX AT 50ML/HR AT THIS TIME. WILL PLACE THE ORDERS AND GET STARTED SOON IV ACCESS IS ACHIEVED.
--- NOTE | 2020-08-18 18:38 | NUR ---
SHIFT SUMMARY- PT ALERT AND ORIENTED, CALL LIGHT IN REACH. PT IS CURRENTLY STRICTLY NPO, ALL ORAL CARE BY SUCTION CATH ONLY. PT WORKED BRIEFLY WITH OT TODAY BUT HAS BEEN FEELING POORLY TODAY. PT SEEMS TO HAVE SOME FTT AT THIS TIME. SHE CONVEYED HER WISH TO NOT HAVE TO GO THROUGH THIS. PALLIATIVE CARE CONSULTED, PT HAS TREMMORS WITH SOME NOTABLE TICKS, SHE IS ALERT AND ANSWERS ORIENTATION QUESTIONS APPROPRIATELY. SHE DOES EXPRESS SOME PARANOIA THINKING STAFF ARE WITH HOLDING FLUIDS WITH INTENT TO TORCHER HER, IN REALITY SHE IS NPO FOR SAFETY. LUNG SOUNDS ARE MOIST T/O AND THE PT HAS AN EXTREMELY WEAK COUGH. MEDS SWITCHED TO IV, PT PLACED ON TELE SINUS TACH AT 112 PRIOR TO CARDIZIEM IV BEING GIVEN. PT APPEARS COMFORTABLE AT THIS TIME REPOSSITIONING AND CHANGEING WAS DONE PT REQUESTED AND SHE WOULD TOLLERATE FOR THE REPOSITIONING. PT HAS AN IV IN THE LEFT AC.
--- NOTE | 2020-08-19 03:41 | NUR ---
VASCULAR ACCESS: IV SITE WAS IN PLACE AT START OF SHIFT.
[2020-08-19 04:56] LABS: BASOPHILS ABSOLUTE AUTO 0.03 K/mm3 (0.00-0.23); BASOPHILS PERCENT AUTO 0 % (0-2); EOSINOPHILS ABSOLUTE AUTO 0.04 K/mm3 (0.00-0.68); EOSINOPHILS PERCENT AUTO 0 % (0-6); Hematocrit 27.1 % (33.0-51.0); Hemoglobin 8.6 g/dL (11.5-16.0); IMMATURE GRAN ABSOLUTE AUTO 0.06 K/mm3 (0.00-0.10); IMMATURE GRAN PERCENT AUTO 0 % (0-1); LYMPHOCYTES ABSOLUTE AUTO 1.25 K/mm3 (0.84-5.20); LYMPHOCYTES PERCENT AUTO 9 % (21-46); MONOCYTES ABSOLUTE AUTO 1.31 K/mm3 (0.16-1.47); MONOCYTES PERCENT AUTO 9 % (4-13); Mean Corpuscular HGB Conc 31.7 g/dL (31.5-36.5); Mean Corpuscular Volume 85 fL (80-100); Mean Platelet Volume 8.7 fL (9.1-12.4); NEUTROPHILS ABSOLUTE AUTO 11.85 K/mm3 (1.96-9.15); NEUTROPHILS PERCENT AUTO 82 % (41-73); Platelet Count 512 K/mm3 (150-400); RDW Coefficient Variation 13.9 % (11.7-14.2); RDW Standard Deviation 42.9 fL (35.1-46.3); Red Blood Cell Count 3.18 M/mm3 (3.80-5.20); White Blood Cell Count 14.54 K/mm3 (4.00-11.30)
[2020-08-19 05:15] LABS: Alanine Aminotransfer (ALT/SGP 18 U/L (12-78); Albumin, Blood 2.4 g/dL (3.4-5.0); Albumin/Globulin Ratio 0.5 (0.8-1.8); Alk Phos 189 U/L (50-136); Anion Gap 5 mmol/L (6-16); Aspartate Aminotrans (AST/SGOT 15 U/L (12-37); Bilirubin, Total 0.7 mg/dL (0.1-1.0); Blood Urea Nitrogen 23 mg/dL (8-24); Bun/Creatinine Ratio 42.4 (12.0-20.0); CO2, Blood 28 mmol/L (21-32); Calcium, Blood 9.4 mg/dL (8.5-10.1); Chloride, Blood 106 mmol/L (98-108); Creatinine, Blood 0.54 mg/dL (0.40-1.00); Glomerular Filtration Rate >60 (60-); Glucose, Blood 132 mg/dL (70-99); Magnesium, Blood 1.9 mg/dL (1.6-2.4); Potassium, Blood 3.8 mmol/L (3.5-5.5); Sodium, Blood 139 mmol/L (136-145); Total Protein, Blood 7.4 g/dL (6.4-8.2)
--- NOTE | 2020-08-19 06:20 | NUR ---
SHIFT SUMMARY: PATIENT IS A&OX3, NPO DUE TO FAILED SWALLOW EVAL. KEEPS ASKING "WHEN CAN I HAVE WATER TO DRINK". BP'S AND HR HAVE BEING ELEVATED. HR UP TO 150 BRIEFLY AFTER SUCTIONING. IV CARDIZEM IV IS GIVEN PER MAR WITH FARE EFFECT. PAIN ALSO EFFECTING VS. IV TORADOL AND VALIUM ARE GIVEN WITH GOOD EFFECT. PATIENT IS NOT TOLERATING SUCTIONING AND IS REFUSING. ONLY ABLE TO COUGH UP SMALL AMT. OF YELLOW SPUTUM. EDUCATION AND EMOTIONAL SUPPORT IS GIVEN.
--- NOTE | 2020-08-19 07:33 | NUR ---
ASSUMED CARE OF PT- BEDSIDE REPORT COMPLETED WITH NIGHT RN KARRIE. PT ALERT AND ORIENTED, SUCTION SET UP AT THE BEDSIDE, PT HAS BEEN DECLINING TO SUCTION HERSELF AND HAS BEEN FREQUENTLY DECLINING TO ALLOW STAFF TO SUCTION. PT IS UNABLE TO PROTECT HER AIRWAY PER ST EVAL YESTERDAY, SECRETIONS ARE AUDIBLE, LUNG SOUNDS ARE MOIST AND COARSE CRACKLES T/O ALL MCARTHUR. PT ALLOWED THIS RN TO SUCTION THIS MORNING MUCUS PRODUCTION IS THICK AND YELLOW. AFTER SUCTION AUDIBLE SECRETIONS DECREASED BUT LUNG SOUNDS REMAINED THE SAME. WILL CTM THE PT RESPIRATORY STATUS T/O THE DAY.
--- NOTE | 2020-08-19 12:27 | NUR ---
packet sent to [facility] to review if pt appropriate.
--- NOTE | 2020-08-19 18:21 | NUR ---
SHIFT SUMMARY- PT ALERT AND OREIENTED WIT SOME PARANIOD EPISODES AND HALLUCINATIONS. PT HAS DECLINED PAIN MEDICATION T/O THE DAY BUT HAS ALLOWED CERTAIN STAFF MEMBERS TO PERFORM ORAL SUCTIONING FOR HER. PT RESPIRATIONS ARE FAST AT 20 RESP PER MIN WITH AUDIBLE SECRETIONS BUT THE SECRETIONS SEEM TO HAVE IMPROVED TODAY. PT HAS DECLINED MOUTH MOISTURIZER. SHE RECIEVED A BED BATH TODAY, HAD A BM, SOME REDNESS ON THE COCCYX NOTED, BLANCHABLE. PT DECLINED REPOSITIONING SEVERAL TIMES TODAY LAST POSSITIONING ON HER BACK WITH HIPS FLOATED. PT SEEMS TO BE IN A GOOD MOOD THIS EVENING. SHE HAD AN EPISODE AROUND NOON WHERE SHE WOKE FROM SLEEP AND DECIDED THERE WAS A MONSTER COMING TO GET HER AND WAS TRYYING TO GET OUT OF BED TO RUN WHEN STAFF ARRIVED. PT WAS REASSURED THAT SHE WAS IN A SAFE PLACE AND NOT ALONE. IV CARDIZIEM WAS GIVEN AT THAT TIME SHE WAS DUE FOR HER SCHEDULED DOSE. PT DECLINED VALIUM WHEN OFFERED. PALLIATIVE CARE RN GOT NEW ORDERS FROM THE DR FOR TYLENOL [place] AND A LOWER DOSE OF VALIUM THE PT WAS HAVING SOME APNEA THIS MORNING. PT CURRENTLY IN BED SLEEPING CALL LIGHT IN REACH, IV CLINIMIX GOING INTO NEW IV THE LAST ONE WENT BAD. PLAN AT THIS TIME IS TO TRANSITION TO COMFORT CARE IF PT CONTINUES TO DECLINE, SHE STATED TODAY SHE WANTS TO TRY TO GET BETTER A LITTLE BIT MORE. WILL CTM AND PASS ON TO NIGHT RN IN BEDSIDE REPORT.
--- NOTE | 2020-08-20 07:54 | NUR ---
SHIFT SUMMARY: NO ACUTE CHANGES THIS SHIFT. BP'S ARE STABLE BUT ELEVATED, PATIENT IS ASYMPTOMATIC.
--- NOTE | 2020-08-20 14:40 | NUR ---
DR ADDED CATPRESS PATCH. OKAYED KEEP CLONIDINE Q6 WITH PARAMETERS. PER DR DICKERSON
--- NOTE | 2020-08-20 17:53 | NUR ---
PT CONTINUES ON CLINIMIX. IS NPO AND FAILED SWALLOW TEST AGAIN TODAY WITH SPEACH. PT NOT HAPPY ABOUT THIS. PALIATIVE CARE IS TO SEE AND DISCUSS OPTIONS. DR DICKERSON ORDERED CLONIDINE PATCH. ALSO GIVING DILTIAZEM ORDERED. BED IN LOW POSITION, CALL LITE IN REACH, BED ALARM ON FOR SAFETY
[2020-08-21 05:03] LABS: Hematocrit 29.1 % (33.0-51.0); Hemoglobin 9.1 g/dL (11.5-16.0); Mean Corpuscular HGB 26.5 pg (26.0-34.0); Mean Corpuscular HGB Conc 31.3 g/dL (31.5-36.5); Mean Corpuscular Volume 85 fL (80-100); Mean Platelet Volume 8.8 fL (9.1-12.4); Platelet Count 489 K/mm3 (150-400); RDW Coefficient Variation 13.7 % (11.7-14.2); RDW Standard Deviation 42.5 fL (35.1-46.3); Red Blood Cell Count 3.43 M/mm3 (3.80-5.20); White Blood Cell Count 5.72 K/mm3 (4.00-11.30)
[2020-08-21 05:33] LABS: Alanine Aminotransfer (ALT/SGP 18 U/L (12-78); Albumin, Blood 2.3 g/dL (3.4-5.0); Albumin/Globulin Ratio 0.5 (0.8-1.8); Alk Phos 175 U/L (50-136); Anion Gap 5 mmol/L (6-16); Aspartate Aminotrans (AST/SGOT 20 U/L (12-37); Bilirubin, Total 0.6 mg/dL (0.1-1.0); Blood Urea Nitrogen 37 mg/dL (8-24); CO2, Blood 29 mmol/L (21-32); Calcium, Blood 9.5 mg/dL (8.5-10.1); Chloride, Blood 108 mmol/L (98-108); Globulin, Blood 4.9 g/dL (2.2-4.0); Glomerular Filtration Rate >60 (60-); Glucose, Blood 111 mg/dL (70-99); Sodium, Blood 142 mmol/L (136-145); Total Protein, Blood 7.2 g/dL (6.4-8.2)
--- NOTE | 2020-08-21 07:19 | NUR ---
SHIFT SUMMARY: BP'S ARE STARTING TO COME DOWN WITH CATAPRESS PATCH ON. REPORTING R HIP PAIN 7-8/10 AND MUSCLE SPASMS. IV TORADOL AND VALIUM ARE GIVEN THROUGH THE SHIFT WITH GOOD EFFECT. CLINAMIX IS INFUSING AT 50 ML/HR. PATIENT DOES REFUSE T&P OCCASSIONALLY BUT MOSTLY COOPERATIVE WITH CARE.
--- NOTE | 2020-08-21 18:17 | NUR ---
PT C/O PAIN TWICE TOAY. TORADOL ADMIN. PT STATES DOES OKAY. ADMIN BLOOD PRESSURE MED TWICE TODAY. PT STILL FAILED SWALLOW EVAL. NOT ABLE TO EAT. DOES COMPLAIN MUCH ABOUT THIS. EXPLAINED TO HER THAT ALL SHE SWALLOWS GOES TO HER LUNGS. THIS COULD CAUSE PNEUMONIA AND COULD HAVE DIRE PROBLEMS. SHE NOT HAPPY, BUT UNDERSTANDS. WILL HAVE DISCUSSION WITH PALIATIVE CARE WHEN AVAIL. ORDER IS PLACED. THEY NOT IN THIS WEEKEND. NO OTHER CONCERNS AT THIS TIME. BED IN LOW POSITION, CALL LITE IN REACH, BED ALARM ONFOR SAFETY
--- NOTE | 2020-08-22 08:03 | NUR ---
SHIFT SUMMARY: BP'S AND HR HAVE IMPROVED WITH CATAPRESS PATCH ON. PATIENT IS SELF SUCTIONING AND THERE IS SOME BLOOD IN SUCTION CANISTER. PATIENT IS CAUTIONED ABOUT OVER SUCTIONING AND CAUSING INJURY. NO FURTHER BLOOD OBSERVED AFTER EDUCATION. PATIENT IS ABLE TO TURN HERSELF FOR INC. CARE AND REPOSOTIONING AND FEELS MUCH BETTER IF SHE CAN PARTICIPATE IN ADL'S TO HER FULLEST ABILITIES. CONTINUES TO BE NPO AND CLINAMIX IS INFUSING PER MD ORDER.
--- NOTE | 2020-08-22 16:56 | NUR ---
PT RESTING IN BED AFTER OT EVAL, A/O X4. PT WAS NON-COOPERATIVE WITH ST AND REFUSED ORAL CARE THIS SHIFT, HOWEVER SHE REMAINED PLEASANT AND COOPERATIVE FOR THE REMAINDER OF THE SHIFT. PT BEDBOUND BUT TURNS SELF IN BED. USED SIT TO STAND WITH PT THIS SHIFT. IV LINE RUNNING AND WNL. STAFF WILL CONT. TO MONITOR.
--- NOTE | 2020-08-23 07:28 | NUR ---
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 She denies need for pain meds. Irritable at am shift change. No attempts to get OOB unassisted. Contiues in NSR on tele & on getting 5 mg IV cardizem Q 6. NPO for failed swallow self oral suction.
--- NOTE | 2020-08-23 15:51 | NUR ---
Met with patient got her apillow for her neck. Pt remebered me and was very talkative about her care. She states she is willing to try nutrition and support. She is unsure about everything. will review with pysician plan of cafe and appropratness of tube feeding. It may help with getting her medications for her thyroid.
--- NOTE | 2020-08-23 18:16 | NUR ---
SHIFT SUMMARY DURING BEDSIDE REPORT THIS MORNING PT BEGAN CALLING STAFF ALEX. EXPLAINED TO PT THIS NURSE HASN'T CARED FOR HER DURING THIS VISIT AND DOESN'T APPRECIATE BEING CALLED NAMES WHEN SHE DOESN'T KNOW THE KIND OF CARE I GIVE. AGREED TO START OVER AND HAS BEEN COOPERATIVE AND APPROPRIATE THE REMAINDER OF THE DAY. DOES STRUGGLE TO UNDERSTAND STAFF ARE TRYING THEIR BEST TO HELP HER GET BETTER. WAS ASSISTED UP TO CHAIR THIS MORNING BY O.T. AND S.L.P. IN TO SEE PT. HAD ANOTHER FAILED SWALLOWING TEST. MODIFIED BARIUM SWALLOW COMPLETED WELL. REMAINS NPO DUE TO ASPIRATION RISK. PT SEEMED TO UNDERSTAND BETTER THIS AFTERNOON AND STAFF AREN'T TRYING TO KEEP FOOD AWAY FROM HER ON PURPOSE BUT HER SWALLOWING IS INEFFECTIVE AND UNSAFE FOR HER TO EAT/DRINK AT THIS TIME. IS NOW THINKING OF WAYS TO IMPROVE HER CHANCES TO SWALLOW AGAIN. 1 PERSON MOD ASSIST WITH TRANSFERS FROM BED TO CHAIR AND BACK. MEDICATED FOR PAIN ONCE TODAY. PT QUESTIONING ENTERAL FEEDINGS FOR SHORT TIME TO BOOST STRENGTH. PALLIATIVE CARE IN TO VISIT. RESTING COMFORTABLY THIS AFTERNOON.
--- NOTE | 2020-08-24 18:38 | NUR ---
SHIFT SUMMARY TOLERATED DOBHOFF PLACEMENT THIS A.M. AND CXR COMPLETED WITH TIP IN STOMACH. FEEDING STARTED APPROX 1430 AT 15ML/HR TO BE INCREASED AFTER 8 HOURS AND TOLERATING. PT SELF SUCTIONING. PACKER INSPECTOR IN TO SEE PT THIS AFTERNOON. DRESSING CHANGED TO R HIP. MARITZA INTACT AND EDGES APPEAR WELL APPROXIMATED WITH FADING BRUISES. PROVIDED EDUCATION AND OPPORTUNITIES FOR QUESTIONS TO BE ANSWERED FOR PROCESS.
--- NOTE | 2020-08-24 22:44 | NUR ---
PT with rt femoral neck fx repair after fall continues NPO due to failed repeated swallow evals including modified barium swallow exam. She had dobhoff ng tube placed today at her request for tube feeding. Tapered continous tube feed up to 30 ml hour. Tolerating tube feed with 10 ml residual reinfused. Bowel care give via NG tube.
--- NOTE | 2020-08-25 02:49 | NUR ---
PT had dobbhoff ng tube placed yesterday & had tube feed at 30 ml hr and 90 ml free water flush Q 4 hours. She pulled to NG out whuch was secured to gown with safety pin & nasal securement. DR Hugo was called & she said to replace dobbhoff NG tube in AM for tube feed & meds She is quiet & she does not use call jordan she is incontinent of urine but no recent bowel movement. PT still has jerry in rt hip from rt femoral neck repair. Day shift had changed dressing yesterday & said no s/sx infection present but need clarification of staple removal postop?
[2020-08-25 05:08] LABS: BASOPHILS ABSOLUTE AUTO 0.03 K/mm3 (0.00-0.23); BASOPHILS PERCENT AUTO 1 % (0-2); EOSINOPHILS PERCENT AUTO 5 % (0-6); Hematocrit 29.3 % (33.0-51.0); Hemoglobin 9.3 g/dL (11.5-16.0); IMMATURE GRAN ABSOLUTE AUTO 0.02 K/mm3 (0.00-0.10); IMMATURE GRAN PERCENT AUTO 1 % (0-1); LYMPHOCYTES PERCENT AUTO 36 % (21-46); MONOCYTES ABSOLUTE AUTO 0.81 K/mm3 (0.16-1.47); MONOCYTES PERCENT AUTO 19 % (4-13); Mean Corpuscular HGB 26.9 pg (26.0-34.0); Mean Corpuscular HGB Conc 31.7 g/dL (31.5-36.5); Mean Corpuscular Volume 85 fL (80-100); Mean Platelet Volume 9.7 fL (9.1-12.4); NEUTROPHILS ABSOLUTE AUTO 1.65 K/mm3 (1.96-9.15); NEUTROPHILS PERCENT AUTO 39 % (41-73); Platelet Count 298 K/mm3 (150-400); RDW Coefficient Variation 13.6 % (11.7-14.2); RDW Standard Deviation 42.4 fL (35.1-46.3); Red Blood Cell Count 3.46 M/mm3 (3.80-5.20); White Blood Cell Count 4.21 K/mm3 (4.00-11.30)
[2020-08-25 05:43] LABS: Alanine Aminotransfer (ALT/SGP 21 U/L (12-78); Albumin, Blood 2.4 g/dL (3.4-5.0); Albumin/Globulin Ratio 0.5 (0.8-1.8); Alk Phos 185 U/L (50-136); Anion Gap 6 mmol/L (6-16); Aspartate Aminotrans (AST/SGOT 37 U/L (12-37); Bilirubin, Total 0.4 mg/dL (0.1-1.0); Blood Urea Nitrogen 35 mg/dL (8-24); Bun/Creatinine Ratio 59.6 (12.0-20.0); CO2, Blood 26 mmol/L (21-32); Calcium, Blood 9.4 mg/dL (8.5-10.1); Chloride, Blood 110 mmol/L (98-108); Creatinine, Blood 0.59 mg/dL (0.40-1.00); Globulin, Blood 4.7 g/dL (2.2-4.0); Glomerular Filtration Rate >60 (60-); Glucose, Blood 105 mg/dL (70-99); Magnesium, Blood 2.2 mg/dL (1.6-2.4); Phosphorus, Blood 3.8 mg/dL (2.5-4.9); Sodium, Blood 142 mmol/L (136-145); Total Protein, Blood 7.1 g/dL (6.4-8.2)
--- NOTE | 2020-08-25 14:00 | NUR ---
ATTEMPTS MADE TO REINSERT DOBHOFF FOR NUTRITION. AFTER SEVERAL ATTEMPTS PT REFUSED TO ALLOW FURTHER EFFORT TO BE MADE AT THIS TIME. HAVE ATTEMPTED TO NOTIFY MD TWICE WITH NO PHONE ANSWER. DISCUSSED WITH PT POSSIBLE PEG OPTION. PT FELT IT WAS TOO SOON TO HAVE TRIED TO PLACE TUBE AT THIS TIME DUE TO TRAUMA FROM PREVIOUS TUBE. SHE WANTS IV NUTRITION RESTARTED FOR NOW. PLANS TO SPEAK WITH JONATHAN FROM [facility] ON THE PHONE SHORTLY.
--- NOTE | 2020-08-25 17:32 | NUR ---
SHIFT SUMMARY PT WITH VISITOR THIS AFTERNOON. PT REPORTS SPEAKING WITH [facility] AND DISABILITIES ON THE PHONE TODAY APPROX 1415. STATES THERE IS TO BE ANOTHER CALL ON SATURDAY. UP WITH P.T. THIS AFTERNOO WITH P.T. REPORTING WALKING 10 FEET.
--- NOTE | 2020-08-25 21:35 | NUR ---
ASSUMPTION OF CARE. AOX3. NO NGT. SUCTION AT BEDSIDE, PATIENT SUCTIONS OUT BLOODY SECREATION FROM MULTIPLE ATTEMPTS OF NGT PLACEMENT. LUNG SOUNDS ARE COURSE. CLINIMAX INFUSING, FRAIL SKIN. WEAK. ATTENDS DRY. RIGHT HIP DRESSING CDI. DENIES ANY NEEDS AT THIS TIME. CALL LIGHT IN REACH.
[2020-08-26 05:16] LABS: BASOPHILS ABSOLUTE AUTO 0.03 K/mm3 (0.00-0.23); BASOPHILS PERCENT AUTO 1 % (0-2); EOSINOPHILS ABSOLUTE AUTO 0.19 K/mm3 (0.00-0.68); EOSINOPHILS PERCENT AUTO 4 % (0-6); Hematocrit 27.7 % (33.0-51.0); Hemoglobin 8.7 g/dL (11.5-16.0); IMMATURE GRAN ABSOLUTE AUTO 0.01 K/mm3 (0.00-0.10); IMMATURE GRAN PERCENT AUTO 0 % (0-1); LYMPHOCYTES ABSOLUTE AUTO 1.37 K/mm3 (0.84-5.20); LYMPHOCYTES PERCENT AUTO 28 % (21-46); MONOCYTES PERCENT AUTO 17 % (4-13); Mean Corpuscular HGB 26.4 pg (26.0-34.0); Mean Corpuscular HGB Conc 31.4 g/dL (31.5-36.5); Mean Corpuscular Volume 84 fL (80-100); Mean Platelet Volume 9.6 fL (9.1-12.4); NEUTROPHILS ABSOLUTE AUTO 2.42 K/mm3 (1.96-9.15); NEUTROPHILS PERCENT AUTO 50 % (41-73); Platelet Count 285 K/mm3 (150-400); RDW Coefficient Variation 13.6 % (11.7-14.2); RDW Standard Deviation 41.9 fL (35.1-46.3); Red Blood Cell Count 3.29 M/mm3 (3.80-5.20); White Blood Cell Count 4.82 K/mm3 (4.00-11.30)
--- NOTE | 2020-08-26 05:35 | NUR ---
SHIFT SUMMARY: AOX3, VERY WEAK MOSTLY BEDBOUND. IS ABLE TO TURN SELF IN BED SOME. RIGHT ARM FLACCID. LS COURSE, SELF SUCTIONS, HAS BLOODY SECREATIONS FROM MULTIPLE ATTEMPTS OF NGT PLACEMENT YESTERDAY. IV CLINIMAX INFUSING ALL NIGHT WITH NO PROBLEMS. VS WNL, AFEBRILE, NO PAIN NOTED. REDNESS ON BOTTOM IMPROVING. SLEPT VERY WELL T/O NIGHT. NO ACUTE CHANGES TO NOTE. CALL LIGHT IS IN REACH.
[2020-08-26 05:37] LABS: Alanine Aminotransfer (ALT/SGP 27 U/L (12-78); Albumin, Blood 2.4 g/dL (3.4-5.0); Albumin/Globulin Ratio 0.5 (0.8-1.8); Alk Phos 184 U/L (50-136); Anion Gap 6 mmol/L (6-16); Aspartate Aminotrans (AST/SGOT 31 U/L (12-37); Bilirubin, Total 0.2 mg/dL (0.1-1.0); Blood Urea Nitrogen 39 mg/dL (8-24); Bun/Creatinine Ratio 68.7 (12.0-20.0); CO2, Blood 25 mmol/L (21-32); Calcium, Blood 9.1 mg/dL (8.5-10.1); Chloride, Blood 112 mmol/L (98-108); Creatinine, Blood 0.57 mg/dL (0.40-1.00); Globulin, Blood 4.6 g/dL (2.2-4.0); Glomerular Filtration Rate >60 (60-); Glucose, Blood 124 mg/dL (70-99); Magnesium, Blood 2.2 mg/dL (1.6-2.4); Phosphorus, Blood 4.2 mg/dL (2.5-4.9); Sodium, Blood 143 mmol/L (136-145)
--- NOTE | 2020-08-26 12:04 | NUR ---
called hospitalist r/hip surg site, dressing coming off, when remove stapels? 's left voice mail msg, will continue to monitor and trying to contact , got through earlier this shift r/medication
--- NOTE | 2020-08-26 18:05 | NUR ---
Brief theraputic visit with patient today taked about her books.
--- NOTE | 2020-08-26 19:20 | NUR ---
alert and orintated x 3, focused on own health and needs, cooprative with care and delightful qurirky sense of humor, call light in reach, bed in low position, jerry removed after call recived from surgon ordering removal, no negative effects noted to procedure, discussed with noc nurse during bsr, will continue to monitor and report
--- NOTE | 2020-08-26 21:48 | NUR ---
ASSUMPTION OF CARE. AOX3, LOOKING BETTER, STILL VERY WEAK, PALE AND FRAGILE. HAS GOOD OUTLOOK ON EVERYTHING. HEATING PAD TO THE BACK/RIGHT HIP AREA, FOR PAIN. ABLE TO TURN SLIGHTLY ON HER OWN. BOTTOM WITH DRESSING TO PROTECT. IV DC'D DUE TO PAIN AND LEAKING. NEW ONE RESTARTED ON THE LEFT UPPER ARM, 22 G. STILL SUCTIONING OUT SECREATIONS, COUGH IS OCCATIONAL. NO NEEDS NOTED AT THIS TIME. TPN INFUSING.
[2020-08-27 04:58] LABS: Hematocrit 28.1 % (33.0-51.0); Hemoglobin 9.1 g/dL (11.5-16.0); Mean Corpuscular HGB 26.5 pg (26.0-34.0); Mean Corpuscular HGB Conc 32.4 g/dL (31.5-36.5); Mean Corpuscular Volume 82 fL (80-100); Mean Platelet Volume 9.8 fL (9.1-12.4); Platelet Count 273 K/mm3 (150-400); RDW Coefficient Variation 13.5 % (11.7-14.2); RDW Standard Deviation 40.7 fL (35.1-46.3); Red Blood Cell Count 3.43 M/mm3 (3.80-5.20); White Blood Cell Count 5.86 K/mm3 (4.00-11.30)
[2020-08-27 05:23] LABS: Albumin, Blood 2.3 g/dL (3.4-5.0); Anion Gap 5 mmol/L (6-16); Blood Urea Nitrogen 33 mg/dL (8-24); CO2, Blood 26 mmol/L (21-32); Chloride, Blood 109 mmol/L (98-108); Creatinine, Blood 0.49 mg/dL (0.40-1.00); Glomerular Filtration Rate >60 (60-); Glucose, Blood 136 mg/dL (70-99); Magnesium, Blood 1.9 mg/dL (1.6-2.4); Phosphorus, Blood 3.1 mg/dL (2.5-4.9); Potassium, Blood 3.7 mmol/L (3.5-5.5); Sodium, Blood 140 mmol/L (136-145)
--- NOTE | 2020-08-27 06:06 | NUR ---
SHIFT SUMMARY: AOX3, FRAGILE, FRAIL, BUT HAS ALOT OF SPIRIT AND HOPE. LS ARE IMPROVING, DIMINISHED IN BASES, DECREASE IN SECREATION PRODUCTION FROM YESTERDAY, SUCTION SELF WITH YELLOW SPUTUM. COUGH IS OCCATIONAL. RIGHT HIP OPEN TO AIR AND HEALING WELL. HEATING PAD FOR PAIN. NEW IV IN LEFT UPPER ARM, POSITIONAL RUNNING CLINIMIX AND TPN. ALBUMIN 2.3, GLUCOSE STAYING IN THE MID 100'S. VS WNL, AFEBRILE, CALL LIGHT IN REACH.
--- NOTE | 2020-08-27 19:15 | NUR ---
tpn infusing, rm air, worried that she might be required to have throat surgery tonight, assured her that it was not schduled and that the nurse would inform her if it was pending, call light in reach, r side still weak, still npo, shared bsr with pt and noc nurse
--- NOTE | 2020-08-28 04:33 | NUR ---
SHIFT SUMMARY A/O, ABLE TO MAKE NEEDS KNOWN. COOPERATIVE WITH CARE. CALLS AND ANSWERS QUESTIONS APPROPRIATELY. NO C/O PAIN/DISCOMFORT. CONTINUES WITH PPN TO A 22G IN DARIO; THIS RN CONCERNED ABOUT POSSIBLE INFILTRATION. NEW ORDERS FROM AUTOMATION ENGINEER HOSPITALIST TO TITRATE PPN TO 50 ML/HR. PATIENT CONTINUES TO CONTEMPLATE PEG TUBE PLACEMENT. ORAL CARE ENCOURAGED WITH SUCTION SWAB. SUCTION AVAILABLE AND WITHIN REACH. REMAINS NPO. REPOSITIONING ENCOURAGE T/O SHIFT. ABLE TO REST OFF AND ON T/O NIGHT. REMAINS HYPERTENSIVE; APPEARS ON TREND WITH PREVIOUS PRESSURES, ALL OTHER VS WNL. NO OTHER ACUTE CHANGES NOTED OVERNIGHT. BED IN LOWEST POSITION. CALL LIGHT AND BELONGINGS WITHIN REACH. CONTINUE WITH CURRENT PLAN OF CARE. REPORT TO ONCOMING RN.
[2020-08-28 05:11] LABS: Anion Gap 4 mmol/L (6-16); Blood Urea Nitrogen 32 mg/dL (8-24); Bun/Creatinine Ratio 63.9 (12.0-20.0); CO2, Blood 25 mmol/L (21-32); Calcium, Blood 8.8 mg/dL (8.5-10.1); Chloride, Blood 109 mmol/L (98-108); Glomerular Filtration Rate >60 (60-); Glucose, Blood 122 mg/dL (70-99); Phosphorus, Blood 3.9 mg/dL (2.5-4.9); Potassium, Blood 4.2 mmol/L (3.5-5.5); Sodium, Blood 138 mmol/L (136-145)
--- NOTE | 2020-08-28 17:45 | NUR ---
Sat with patient for ahwile and had theraputic time. Pt states one of her friends that has been gone is coming back saturday and will help her make a decision. I cannot confirm if this is true. Pt remebers speaking with physician but feels she did not really understand what was offered. She really wants to go home. Very slowly reviewed hospice care and quality of life. She is still interested in food and distraught by the food comercials on TV. Reviewed that on hospice she could have food to semll and taste and then spit it out. She thtough that was a good idea. She then digressed to the government trying to take her money and how they lie. Not confident she can track a conversation well or make decisions. She seems to under stand she is not going to live long but cant ratain much infromation. She states her vision is worse and now sees mostly colors. Will review prognosis and competence with speech therapitst and physician. Goal is placement on hospice to give her some uality and reduce suffering.
--- NOTE | 2020-08-28 19:31 | NUR ---
alert and orintated to self, short term memory issues, friend came in and agreed that she should have someone assist her make decisions, she is still waiting for another female freind to arrive early next week who will be able to help her make health decisions, admited to being worried that the friend might not show. call light in reach, arm swollen so stopped tppn, hanging but not running discussed concerns with noc nurse, cn had tried to arrange for a power glide or other fdc access but were unable to arrange it today, rm air, bed bound due to r side weakness
--- NOTE | 2020-08-29 00:55 | NUR ---
PHYSICIAN CORRESPONDENCE NPO. NO IV ACCESS. MULTIPLE ATTEMTPS TO START A NEW IV. SUPPOSED TO BE ON CLINIMIX AND LIPIDS. DAY SHIFT BROOM BUILDER TO ASSESS FOR INDEWELLING CATHETER. PATIENT ALSO C/O PAIN/DISCOMFORT TO BACK. NEW ORDERS FOR RI TYLENOL AND FENTANYL PATCH 25 MCG.
--- NOTE | 2020-08-29 04:58 | NUR ---
SHIFT SUMMARY ALERT, ABLE TO MAKE NEEDS KNOWN. COOPERATIVE WITH CARE. SOME FORGETFULNESS NOTED. CALLS AND ANSWERS QUESTIONS APPROPRIATELY. C/O PAIN/DISCOMFORT TO BACK, STATES ONGOING PROBLEM. NEW ORDERS PER ONCALL PHYSICIAN. REMAINED NPO OVERNIGHT. MULTIPLE ATTEMTS TO GAIN IV ACCESS WITHOUT SUCCESS; CLINIMIX AND LIPIDS HAVE NOT BEEN INFUSED. CONTINUED ENCOURAGEMENT FOR ORAL CARE WITH SUCTION SWABS. REQUESTED TO SPEAK TO HOSPICE DURING THE DAY. VSS/AFEBRILE. BED REMAINS IN LOWEST POSITION. CALL LIGHT AND BELONGINGS WITHIN REACH. CONTINUE WITH CURRENT PLAN OF CARE. REPORT TO ONCOMING RN.
[2020-08-29 05:38] LABS: Magnesium, Blood 2.1 mg/dL (1.6-2.4); Phosphorus, Blood 3.4 mg/dL (2.5-4.9)
--- NOTE | 2020-08-29 11:20 | NUR ---
Called this morning to meet with patient. She states she has spoke with her friend Chelsea about a plan to go home. Pt was evasive about where she would be staying. Unsure how valid her plan is. She want to go on hospice so she can leave fears dying in hospital. Suspect she may be getting some delirium from being in bed and lack of stimulus. Will review with care team. Pt may not be able to track a plan of care will try to get lukas number from her and see what conversation was. Pt pps score 30%
--- NOTE | 2020-08-29 19:25 | NUR ---
CLIENT [id number]. 2 ASSIST. DECLINED WORKING WITH PT TODAY. DISCUSSED HER WISHES TO TO GO HOME WITH HOSPICE. DID NOT APPEAR WILLING TO HAVE PEG TUBE PLACED. POWERGLIDE PLACED TODAY WITH LIPIDS AND CLINIMIX RESTARTED. LIDOCAINE AND ICE USED FOR R HIP PAIN WITH GOOD RESULTS. CLIENT HAS NO MAJOR CONCERNS FOR THIS RN
--- NOTE | 2020-08-30 05:37 | NUR ---
SHIFT SUMMARY- PT. A&O, PLEASANT. ON BEDREST THIS SHIFT, INCONT ATTENDS IN PLACE. NO COMPLAINTS OF PAIN OR DISCOMFORT T/O THE NIGHT. CLINIMIX INFUSING, PT. TOLERATING WELL. VSS. PLAN FOR POSSIBLE D/C HOME WITH HOSPICE. CALL LIGHT WITHIN REACH AND SIDE RAILS UPX2. WILL CONT TO MONITOR.
[2020-08-30 06:43] LABS: Albumin, Blood 2.4 g/dL (3.4-5.0); Anion Gap 4 mmol/L (6-16); Blood Urea Nitrogen 31 mg/dL (8-24); Bun/Creatinine Ratio 56.7 (12.0-20.0); CO2, Blood 28 mmol/L (21-32); Calcium, Blood 9.1 mg/dL (8.5-10.1); Chloride, Blood 108 mmol/L (98-108); Creatinine, Blood 0.55 mg/dL (0.40-1.00); Glomerular Filtration Rate >60 (60-); Glucose, Blood 117 mg/dL (70-99); Phosphorus, Blood 3.4 mg/dL (2.5-4.9); Potassium, Blood 4.1 mmol/L (3.5-5.5); Sodium, Blood 140 mmol/L (136-145)
--- NOTE | 2020-08-30 18:46 | NUR ---
PT AWAKE AND ALERT THROUGHOUT SHIFT. PLEASANT AND COOPERTIVE. CALLS APPROPRIATELY. LIDOCANE AND ICE UTILIZED FOR PAIN WITH GOOD RESULTS. ST COGNITIVE TESTING DONE. PT ABLE TO MAKE OWN MEDICAL DESCISIONS. NO OTHER SIGNIFICANT CHANGES NOTED
--- NOTE | 2020-08-31 06:40 | NUR ---
SHIFT SUMMARY PT IS A 67 Y/O FEMALE, ADMITTED FOR R HIP FX AND REPAIR. SHE IS A&O X 3, BEDREST, INCONTINENT. NPO, ICE CHIPS ONLY. VITAL SIGNS STABLE. NO C/O ACUTE PAIN, NAUSEA OR SOB. RECEIVING CLINIMIX @ 50 ML/HR. NO ACUTE CHANGES IN PT CONDITION NOTED. WILL CONTINUE TO MONITOR AND TREAT PER EMAR UNTIL HAND OFF TO DAY SHIFT RN.
--- NOTE | 2020-08-31 13:22 | NUR ---
Pt resting in bed upon arrival. Engaged in therapeutic listening as Pt expresses frustration regarding still being in the hospital. Pt states "I don't have very long to live and I don't want to in the hospital". Discussed airport planner's notes and facility to evaluate Pt today. Pt appears paranoid as evidenced by statement "She's getting kick back for placing me in a facilty she wants". Continued therapeutic listening. Ended visit to allow Pt to rest. Palliative Care will remain available.
--- NOTE | 2020-08-31 19:35 | NUR ---
NO MAJOR CLINICAL CHANGES DURING SHIFT. CLIENT [id number]. RR EVEN AND UNLABORED.DENIED PAIN THROUGHOUT SHIFT. CLINIMIX AND LIPIDS RUNNING RECIEVED BED BATH AND BED CHANGE. CASE MANAGEMENT WORKING ON PT WISHES TO GO HOME ON HOSPICE.
--- NOTE | 2020-09-01 06:51 | NUR ---
SHIFT SUMMARY PT IS A 75 Y/O FEMALE, ADMITTED FOR A R HIP FX POST SURGICAL REPAIR. SHE IS A&O X 3, ON BEDREST. NO C/O ACUTE PAIN, NAUSEA OR SOB. VITAL SIGNS STABLE. PT RECEIVING CLINIMIX @ 50 ML/HR. NO ACUTE CHANGES IN PT CONDITION NOTED DURING THE NIGHT. REPORT GIVEN TO ONCOMING RN.
--- NOTE | 2020-09-01 12:49 | NUR ---
Spiritual care visit conducted. Patient is sitting up in bed and alert. Patient immediately tells me about her frustrations with the hospital policies and her frustration with her medical conditions. Patient gets emotional when she talks about the of her 7 and 1/2 yrs ago. I normalize patient's experience and provide therapeutic listening, grief support, spiritual guidance and prayer. Patient responds well and states that she felt and saw light while I prayed and then said, "and I don't believe in that sort of thing." I will continue to remain available to patient and family.
--- NOTE | 2020-09-01 17:13 | NUR ---
Met with pt this am at the request of the patient advocate. The patient has been drafting a letter to address her wishes for her body once she has . She requests witnesses sign her letter, but states she isn't sure that someone who work here would be able to legally sign. Plan to visit pt olena gary
--- NOTE | 2020-09-01 18:32 | NUR ---
alert and orintated to self and location, friend came in and commented again how ungrounded she was, content to write and read in rm, bed bath completed, rm air, saline locked, call light in reach, will continue to monitor and treat until share bsr with noc nurse and pt
--- NOTE | 2020-09-02 03:23 | NUR ---
SHIFT SUMMARY PATIENT HAD NO ACUTE CHANGES OBSERVED. AXOX 2 WITH CONFUSION AT TIMES. BEDREST. POWERGLIDE DARIO INFUSING CLINIMIX AT 50 mL/HR. NPO. VSS/AFEBRILE. DENIES PAIN, SOB, AND N/V. READING IN ROOM FIRST PART OF SHIFT. AGITATED X ONE WITH IV LINES BEFORE READJUSTED. CALL LIGHT IN REACH. BED IN LOWEST POSITION. WILL CONTINUE TO MONITOR UNTIL DAY SHIFT NURSE ASSUMES CARE.
--- NOTE | 2020-09-02 16:10 | NUR ---
RAVINDER IS PLANNING TO GO TO [facility] SHE REQUIRES A HIGHER THAN PREVIOUS LEVEL OF CARE. SHE ENJOYS VISITS THROUGHOUT THE DAY. HER CODE STATUS HAS BEEN CHANGED FROM FULL CODE TO DNR DURING THIS HOSPITAL STAY. NO FURTHER NEEDS IDENTIFIED AT THIS TIME.
--- NOTE | 2020-09-02 16:21 | NUR ---
Received a call from care managers office to request extra support for the family when they arrive. The pt's nurse believes this pt is actively dying. Upon assessment, it appears the patient is sleeping, but according to staff, pt did appear to be non-responsive and clammy. Plan to meet with family when they arrive, and discuss any updates needeed to pt's plan of care at that time.
--- NOTE | 2020-09-03 05:06 | NUR ---
SHIFT SUMMARY ASSUMED CARE OF PT AT 1900. PT IS A/OX3. HEART SOUNDS REGULAR, LUNG SOUNDS DIMINISHED. PT C/O THROAT HURTING AND ASKING FOR WATER, PT EDUCATED ABOUT FAILED SWOLLOW STUDIES AND ASPIRATION. PT UPSET WITH DAY SHIFT DOCTOR BEUCASE SHE SAID THAT THE DOCTOR SAID SHE COULD HAVE ICE AND WATER BUT THE DAYSHIFT NURSE SAID THAT THIS CONVERSATION NEVER HAPPENED. PT ASKED DURING THE NIGHT FOR TYLENOL FOR HER SORE THROAT AND HEADACHE BUT REFUSED TO TAKE HI MEDICATION AND WANTS TO WAIT TO TAKE TO DAYSHIFT DOCTOR. PT WANTS TO GO HOME ON HOSPICE AND WOULD LIKE TO BE ABLE TO SUCK ON ICE CHIPS UNTIL SHE LEAVES. PT WAS INCONTIENT DURING THE NIGHT. CALL LIGHT IN REACH, BED IN LOWEST POSTITION.
--- NOTE | 2020-09-03 17:15 | NUR ---
SHIFT SUMMARY- PT IS A/O, PLESANT AND COOPERATIVE. SHE IS NPO EXCEPT ICE CHIPS AND SIPS, PER DR. DICKERSON. SHE WORKED WITH PT AND TOLERATED WELL. AMBULATED LATER THAT AFTERNOON. SHE IS RECIEVING LIPID AND CLINIMIX IV. SHE IS INC AND REQUIRES ASSISTANCE TO CHANGE. HER BED IS IN THE LOW POSITON AND CALL LIGHT IS WITIN REACH.
--- NOTE | 2020-09-04 04:55 | NUR ---
SHIFT SUMMARY ASSUMED CARE OF PT AT 1900. PT IS A/OX4. HEART SOUNDS IRREGULAR, LUNG SOUNDS DIMINISHED. PT WAS INCONTIENT OF URINE T/O THE NIGHT. PT HAS R SIDED WEAKNESS. PT IS HAPPY NOW THAT SHE WAS ABLE TO HAVE ICE SHIPS. NO ACUTE EVENTS, PT WAS ABLE TO GET SLEEP TONIGHT. CALL LIGHT IN REACH, BED IN LOWEST POSTION.
--- NOTE | 2020-09-04 18:28 | NUR ---
SHIFT SUMMARY- PT IS ALERT, PLESANT AND COOPERATIVE. SHE IS NPO EXCEPT CHIPS AND SIPS. SHE SLEPT MOST OF THIS SHIFT. SHE SLEPT FOR MOST OF THIS SHIFT. SHE HAD AN ICE CHIP GET STUCK IN HER THROAT THIS EVENING. SHE ATTEMPTED TO SUCTION IT OUT. THERE WAS BLOOD IN THE SUCTIONING TUBING. HER BED IS IN THE LOW POSITON AND CALL LIGHT IS WITHIN REACH.
--- NOTE | 2020-09-05 04:26 | NUR ---
SHIFT SUMMARY ASSUMED CARE OF PT AT 1900. BEFORE SHIFT CHANGE PT CHOKED ON A PEICE OF ICE. PT STILL THINKS THERE IS SOMETHING IN HER THROAT. PT SUCTIONED SELF AND MADE HER THROAT BLEED. PT IS VERY UPSET, SAYING "I NEED A NURSE WITH MORE EXPIRIENCE TO TAKE CARE OF ME". PT TRIED TO REFUSES ATTENDS CHANGES, BUT EVENTTUALLY GAVE IN. PT THREW UP SMALL AMOUNT OF YELLOW EMESIS, PT SAYS ITS BECUASE SHE HAS "MEAT" STUCK IN HER THROAT BUT PT HAS NOT HAD ANYTHING PO SINCE SHE HAS BEEN HERE. PT REFUSES ORAL CARE, SAYING "IT HURTS TOO MUCH". PT CATHERINE PEARL FOR NAUSEA. CALL LIGHT IN REACH, BED IN LOWEST POSITION.
--- NOTE | 2020-09-05 19:08 | NUR ---
SHIFT SUMMARY: NO ACUTE CHANGES TO REPORT THIS SHIFT. PT A&O X2-3; PARANOID; COOPERATIVE WITH CARE. HX L CVA c R SIDE WEAKNESS. NPO R/T FAILED SWALLOW EVAL; CLINIMIX @ 50. EXPECTED D/C TO [facility]. REPORT GIVEN TO ONCOMING RN.
--- NOTE | 2020-09-06 15:16 | NUR ---
Met with pt today, she is planning to move to [facility] likely by tomorrow. She states she's "so happy to be moving to "her new home". She denies pain, denies SOB or other complaint. No further palliative visits planned.
--- NOTE | 2020-09-06 17:59 | NUR ---
SHIFT SUMMARY: NOW ON COMFORT CARE. IS REFUSING MOST POSITION CHANGES, ORAL CARE, BATHING, AND ATTENDS CHANGES DESPITE EDUCATION. HAD CALLED A TAXI THIS MORNING TO "TAKE ME TO A HOSPITAL IN [place]." TALKED TO HER ABOUT HER CHOICE TO GO TO [facility]; I THINK SHE IS AFRAID OF DYING IN THE HOSPITAL, WANTS TO GET OUT OF HERE [facility]. IV NUTRITION IS CONTINUING PER HER REQUEST. SCHEDULED ATIVAN IV SEEMS TO BE HELPING WITH HER ANXIETY. PLAN IS FOR D/C TOMORROW.
--- NOTE | 2020-09-07 04:49 | NUR ---
SHIFT SUMMARY A/0 2-3, CONTINUES TO BE IRRITABLE DURING CARE WITH SOME PARANOIA NOTED. REFUSES CARE AT TIMES. ORAL CARE AND REPOSITIONING OFFERED T/O THE NIGHT. DENIES PAIN OR SOB. NO ACUTE CHANGES AT THIS TIME. PLAN IS TO D/C TO [facility] WITH [facility]OSPICE TODAY. BED IN LOWEST POSITION WITH CALL LIGHT IN REACH. WILL CONTINUE TO MONITOR AND REPORT TO ONCOMING RN.
[2020-09-07] MEDS ORDERED: Catapres-Tts 21 EACH TOP (10:00)
[2020-09-07] MEDS ORDERED: ACET120S PR (10:00)
[2020-09-07] MEDS ORDERED: LORA2L PO (10:01)
--- NOTE | 2020-09-07 10:15 | NUR ---
DISCHARGE SUMMARY PT DISCHARGE TODAY AT 1015 VIA [facility]. PT A&O2-3. DISCHARGE EDUCATION AND INSTRUCTIONS GIVEN TO PATIENT. PT VERBALIZED UNDERSTANDING OF DISCHARGE INSTRUCTIONS. NO ACUTE CHANGES NOTED TO PATIENT PRIOR TO DISCHARGE. PT TO DISCHARGE WITH HOSPICE SERVICES AT [facility]. PATIENT CALM AND COMFORTABLE DURING DISCHARGE PROCESS.
== END 2020-09-07 10:16 | disposition hospice, inpatient (51) | DRG 480 ==
LOC: ER 21:56 → SURS 08-02 → MEDS 08-02 → SURS 08-02 00:07 → MEDS 08-18 01:20
PROVIDERS: Internal Medicine; Orthopaedic Surgery; ADMIT Internal Medicine
PROC: 0QS606Z Reposition Right Upper Femur with Intramedullary Internal Fixation Device, Open Approach (ICD-10-PCS; principal; 2020-08-03 12:00)
DX: S72.141A Displaced intertrochanteric fracture of right femur, initial encounter for closed fracture (principal); E43 Unspecified severe protein-calorie malnutrition; D62 Acute posthemorrhagic anemia; I48.92 Unspecified atrial flutter; N39.0 Urinary tract infection, site not specified; R64 Cachexia; I69.351 Hemiplegia and hemiparesis following cerebral infarction affecting right dominant side; Z66 Do not resuscitate; M84.454A Pathological fracture, pelvis, initial encounter for fracture; Z20.822 Contact with and (suspected) exposure to COVID-19; E86.0 Dehydration; I16.0 Hypertensive urgency; R13.10 Dysphagia, unspecified; B96.20 Unspecified Escherichia coli [E. coli] as the cause of diseases classified elsewhere; E05.90 Thyrotoxicosis, unspecified without thyrotoxic crisis or storm; D63.8 Anemia in other chronic diseases classified elsewhere; F22 Delusional disorders; M81.0 Age-related osteoporosis without current pathological fracture; E04.1 Nontoxic single thyroid nodule; R00.0 Tachycardia, unspecified; R94.31 Abnormal electrocardiogram [ECG] [EKG]; I10 Essential (primary) hypertension; Z79.899 Other long term (current) drug therapy; W01.0XXA Fall on same level from slipping, tripping and stumbling without subsequent striking against object, initial encounter; Y92.000 Kitchen of unspecified non-institutional (private) residence as the place of occurrence of the external cause
CPT/HCPCS: 0241U; 36415; 70450; 70491; 71045; 72192; 73502; 73552; 73560-RT; 74230; 76377; 80048; 80053; 80069; 81001; 82607; 82652; 82728; 82746; 82947; 83540; 83550; 83735; 83880; 84100; 84439; 84443; 84481; 84484; 85014; 85018; 85025; 85027; 87040; 87077; 87086; 87147; 87186; 92523; 92526; 92610; 92611; 93005; 93010; 93306; 96374-59; 97110; 97110-CQ; 97112; 97116; 97162; 97166; 97530; 97530-CQ; 97535; 99285-25; A9270; A9270-GY; C1713; C1769; J0360; J0696; J1100; J1170; J1650; J1885; J2060; J2250; J2270; J2405; J2704; J2765; J3010; J3360; J7030; J7040; J7120; Q9967